=== PATIENT | male | born 1960 | race Caucasian/White ===

== ENCOUNTER → 2018-01-02 | Outpatient (CLI) | payer BC | END | disposition home or self-care (01) | LOC: RADMRIMAIN 06:28 | PROVIDERS: ATTEND Surgery | DX: K76.9 Liver disease, unspecified (principal) | CPT/HCPCS: 82565 ==

== ENCOUNTER → 2018-07-21 | Outpatient (CLI) | payer BC | LOC: LABWHC1 12:22 | PROVIDERS: ATTEND Orthopaedic Surgery | DX: Z01.812 Encounter for preprocedural laboratory examination (principal); M16.12 Unilateral primary osteoarthritis, left hip | CPT/HCPCS: 86850; 86900; 86901; 87070 ==

== ENCOUNTER 2018-07-31 12:18 | Inpatient (IN) | payer BC ==
[2018-07-27 17:27] VITALS: BMI 31.7
--- NOTE | 2018-07-30 17:45 | HP ---
HISTORY AND PHYSICAL Surgery is scheduled for 07/31/2018. Harvey Tran is a 57-year-old patient seen with progressive left hip pain. We discussed treatment options. He elected to proceed with left total hip arthroplasty. Consent regarding procedure was obtained. Clearance had been provided by Dr. Ladarius Yanes. PAST MEDICAL HISTORY: Hyperlipidemia, hypertension. PAST SURGICAL HISTORY: Right total hip arthroplasty, knee arthroscopy. DAILY MEDICATIONS: Atorvastatin, losartan. ALLERGIES: None reported. SOCIAL HISTORY: Patient denies current tobacco use. PHYSICAL EXAMINATION: Evaluation of the left hip, there is a limited range of motion with pain. Positive hip impingement sign. Straight leg raise negative. Distal neurovascular exam is intact. RADIOGRAPHS: Radiographs of the left hip reveal severe osteoarthritic changes. IMPRESSION: 1. Left hip osteoarthritis. 2. Hypertension. 3. Hyperlipidemia. PLAN: Left direct anterior left total hip arthroplasty. MMODL / IJN: [id number] /
[~2018-07-31 12:18] MED LIST: TRANEXAMIC ACID 1,000 MG in SODIUM CHLORIDE 0.9% 50 ML IVPB ONE; ceFAZolin IN SWFI 2 GM/20 ML SYRINGE IVP ONE
[2018-07-31] MEDS ORDERED: LACTATED RINGERS 1,000 ML IV ONE ×2 (14:15→16:42)
[2018-07-31] MEDS ORDERED: LIDOCAINE 1% 20 ML VIAL (10MG/ML) FOR IV START INTRADERMA ONE (14:15)
[2018-07-31] MEDS ORDERED: ROPIVACAINE 246.25 MG, EPINEPHrine 0.5 MG, KETOROLAC 30 MG, cloNIDine HCL/PF 80 MCG, WA... MISCELLANE ONE ×5 (14:24)
[2018-07-31] MEDS: ACETAMINOPHEN TAB 500 MG TAB PO ONE ×2 (14:44→18:10)
[2018-07-31] MEDS: MELOXICAM 7.5 MG TAB PO ONE ×2 (14:44→18:11)
[2018-07-31] MEDS ORDERED: ONDANSETRON 4 MG/2 ML VIAL IVP ONE (14:53)
[2018-07-31] MEDS ORDERED: DEXAMETHASONE SOD PHOSPHATE 10 MG/ML 1 ML VIAL IV ONE (14:53)
[2018-07-31] MEDS ORDERED: ePHEDrine SULFATE/0.9% NACL/PF 50 MG/5 ML SYRINGE IV ONE (14:57)
[2018-07-31] MEDS ORDERED: fentaNYL (PF) 50 MCG/ML 2 ML AMP ONE (14:57)
[2018-07-31] MEDS ORDERED: SODIUM CHLORIDE 0.9% 100 ML BAG ONE (14:57)
[2018-07-31] MEDS ORDERED: MIDAZOLAM 2 MG/2 ML VIAL ONE (14:57)
[2018-07-31] MEDS ORDERED: PHENYLEPHRINE-0.9% NACL SYG 1 MG/10 ML SYRINGE ONE (14:57)
[2018-07-31] MEDS ORDERED: TRANEXAMIC ACID 1,000 MG/10 ML VIAL ONE (14:57)
[2018-07-31] MEDS ORDERED: ceFAZolin 3,000 MG in SODIUM CHLORIDE 0.9% IRRIGATIO 3,000 ML IRRIGATION ONE (15:30)
[2018-07-31] MEDS ORDERED: HYDROcodone/APAP 10-325MG 1 EACH TAB PO PRN (16:47)
[2018-07-31] MEDS ORDERED: HYDROmorphone 0.5 MG/0.5 ML SYRINGE IVP PRN ×2 (16:47)
[2018-07-31] MEDS ORDERED: NALOXONE 0.4 MG/ML 1 ML VIAL IV PRN (16:47)
[2018-07-31] MEDS ORDERED: traMADol 50 MG TAB PO PRN (16:47)
[2018-07-31] MEDS ORDERED: ONDANSETRON 4 MG/2 ML VIAL IVP PRN (16:47)
--- NOTE | 2018-07-31 16:47 | P.OP ---
Date of Procedure: 07/31/18 Preoperative Diagnosis: Left hip osteoarthritis Postoperative Diagnosis: Left hip osteoarthritis Procedure(s) Performed: Direct anterior left total hip arthroplasty Implants: 1. Depuy Corail KA size 11 standard collar press-fit femoral stem 2. Depuy pinnacle 56 mm press-fit acetabular shell 3. Depuy pinnacle neutral polyethylene acetabular liner 36 mm ID 56 mm OD 4. Biolox delta ceramic femoral head 36 mm +5 Anesthesia: local, spinal Surgeon: Ryan Mann Ice Puller #1: Jhon Hinds Estimated Blood Loss (ml): 250 Pathology: other (Femoral head) Condition: stable Disposition: PACU Indications for Procedure: 57-year-old patient seen with symptomatic left hip osteoarthritis. After treatment options were discussed, he elected to proceed with total hip arthroplasty. Operative Findings: see description of procedure Description of Procedure: The patient was taken to the operative suite. Patient underwent a spinal anesthetic by the department of anesthesia. Patient was then transferred to the [address] table. Patient was given preoperative IV antibiotics and TXA. Both lower extremities were placed in standard leg spars. The hip was then prepped and draped in the normal sterile orthopedic fashion. A standard anterior incision was made beginning 3 cm lateral and 1 cm distal to the ASIS extending 10 cm. Dissection was then carried down through the subcutaneous soft tissues down to the fascia overlying the tensor fascia diandra. An incision was now made through the fascia. Careful dissection was taken down exposing the tensor fascia diandra muscle. A Cobra retractor was now placed along the medial femoral neck and a second one along the lateral femoral neck. The venous circumflex vessels were now identified, cauterized and clipped. We identified the anterior hip capsule. An incision was made through the hip capsule along the lateral border. I performed a partial anterior capsulectomy. Retractors were now placed around the femoral neck itself. A femoral neck cut was now made with a sagittal saw. It was completed with an osteotome at the lateral neck area. The femoral head was now removed without difficulty. The extremity was now rotated to 45 of external rotation. It was locked in position. Residual labrum was now debrided out. Serial reaming was performed of the acetabulum while rBennen CADENA assisted holding an anterior retractor for exposure. Once we reached the appropriate size and a trial was position and fit nicely. The appropriate size was now chosen opened and made available. It was introduced into the acetabulum without difficulty. The C-arm/fluoroscopy was now brought into the operative field. We made sure we had a true AP pelvic view. We now under direct C-arm/fluoroscopy introduced into the acetabular component with appropriate version and inclination. I held the cup in appropriate position well Brennen CADENA used a mallet to seat the acetabular component. I noted the component now to be well seated and stable. Acetabular cup introduce her was removed. The C-arm was pulled back. An appropriate liner was introduced and clicked into position. It was felt to be stable. At this point retractors were removed. The extremity was now placed into 120 external rotation with no traction. The leg was now dropped to the ground and adducted. Appropriate retractors were now positioned along the proximal femur. We also placed our femoral look into position. Additional capsular releasing was performed to gain access to the proximal femur. We now used a box osteotome. A canal finder was now utilized. Serial broaching was now performed with the assistance of Brennen CADENA tapping the broaches down with a mallet while held the broach in appropriate rotation and position. This was done until we reached the appropriate size with good overall rotational stability. Appropriate calcar planing was performed. A trial head/neck was placed into position. The hip was now reduced. The C-arm/fluoroscopy was brought back into the operative field. A spot film was obtained of the nonoperative hip. A spot film was obtained of the trial components. Overlays were performed, we noted good overall alignment and positioning for determining leg length. The C- arm/fluoroscopy was pulled back. Retractors were repositioned and the hip was dislocated. The leg was again taken down to the ground and adducted. Appropriate retractors were repositioned as well as the femoral hook. All trial components were removed. The femoral implant was opened along with the femoral head. The femoral implant was introduced on the appropriate handle into our pre-broached area. I held the component position well Brennen CADENA used a mallet to seat the femoral component. The femoral component was now noted to be well seated and stable.. The femoral head was introduced with good positioning and fixation noted. Retractors were now removed. The hip was now reduced. There appeared be good positioning of the hip confirmed on intraoperative fluoroscopy. Spot films were obtained to document this. A second gram of TXA was given. The deep and superficial soft tissues were infiltrated with local analgesic. Bipolar cautery had been utilized intermittently through the procedure for hemostasis. The wound was irrigated copiously with pulse lavage mechanical irrigation. The fascia was repaired with Vicryl suture. The subcutaneous soft tissues were repaired in layers with Vicryl suture. The skin was approximated with pernio/Dermabond. Sterile dressings were applied. Patient was then awakened, transferred to a bed and taken to recovery in stable condition. Brennen CADENA assisted with the complex procedure.
[2018-07-31] MEDS: HYDROmorphone 0.5 MG/0.5 ML SYRINGE IVP ONE ×2 (17:20→17:26)
[2018-07-31] MEDS: HYDROcodone/APAP 10-325MG 1 EACH TAB PO PRN (19:03)
[2018-07-31] MEDS: HYDROmorphone 1 MG/ML 1 ML SYRINGE IVP PRN ×2 (19:53→23:35)
[2018-07-31] MEDS ORDERED: SENNOSIDES-DOCUSATE SODIUM 1 EACH TAB PO SCH (21:00)
[2018-07-31] MEDS: ceFAZolin IN SWFI 2 GM/20 ML SYRINGE IVP SCH (22:05)
[2018-08-01] MEDS: HYDROmorphone 1 MG/ML 1 ML SYRINGE IVP PRN ×2 (02:55→07:18)
--- NOTE | 2018-08-01 07:02 | FL ---
EXAMINATION TYPE: FL guidance operating room, XR Hip Limited LT DATE OF EXAM: 07/31/2018 CLINICAL HISTORY: Left anterior hip replacement TECHNIQUE: Fluoroscopy. COMPARISON: None. FINDINGS: Fluoroscopic guidance was provided during procedure performed by Dr. Mann. A total o f 21 seconds of fluoroscopic time was utilized during the procedure and 1 spot images was acquired du ring left anterior hip replacement. IMPRESSION: As Above.
[2018-08-01] MEDS: ceFAZolin IN SWFI 2 GM/20 ML SYRINGE IVP SCH (07:18)
[2018-08-01 07:45] VITALS: BP 116/77; PULSE 86; RESP 16; TEMP 98.4
[2018-08-01] MEDS ORDERED: FAMOTIDINE 20 MG TAB PO SCH (09:00)
[2018-08-01] MEDS ORDERED: ENOXAPARIN 40 MG/0.4 ML SYRINGE SQ SCH (09:00)
[2018-08-01] MEDS ORDERED: MELOXICAM 7.5 MG TAB PO SCH (09:00)
[2018-08-01] MEDS: HYDROcodone/APAP 10-325MG 1 EACH TAB PO PRN (10:10)
--- NOTE | 2018-08-01 10:23 | P.CONS ---
History of Present Illness - Reason for Consult Consult date: 08/01/18 Medical management Requesting physician: Ryan Mann - Chief Complaint s/p left total hip - History of Present Illness 57-year-old male with a past medical history significant for hypertension, hyperlipidemia, and osteoarthritis who underwent elective left total hip arthroplasty on 07/31/2018. Dr. Yanes was consulted for medical management. The patient was seen postoperatively on the medical unit. He is resting comfortably in bed. Patient states his pain is tolerable at this time, but is requiring IV narcotics to manage his pain. He states he walked up to the nurses station this morning without assistance. He was instructed to have help while ambulating today for his safety. He denies SOB. Denies chest pain. Denies nausea or vomiting. Vital signs remain stable. REVIEW OF SYSTEMS: Those systems with pertinent positive or pertinent negative responses have been documented in the HPI PHYSICAL EXAM: GENERAL: This is a 57-year-old male in no apparent distress at the time of examination. Pleasant and cooperative. HEENT: Head is atraumatic, normocephalic. Pupils are equal, round, and reactive to light. Sclerae anicteric. Conjunctivae are clear. Mucus membranes of the mouth are moist. Neck is supple. RESPIRATORY: Clear to auscultation. No wheezes, rales, or rhonchi. No use of accessory muscles. Patient maintaining oxygen saturation greater than 92%. No chest wall tenderness is noted on palpation or with deep breathing. CARDIOVASCULAR: Regular rate and rhythm. S1 and S2 noted. No JVD noted. No S3 or S4 noted. GASTROINTESTINAL: No distention noted. Abdomen soft and round. Normal active bowel sounds auscultated x 4 quadrants. No pain or tenderness noted upon palpation. INTEGUMENTARY: Dressing to left hip CDI. No cyanosis. No jaundice. No rashes noted. No cellulitis noted. EXTREMITIES: 2+ peripheral pulses. No evidence of peripheral edema. No calf tenderness noted. Skin grafts to right arm. Limited range of motion of right arm due to traumatic injury when patient was 18. NEUROLOGIC: Cranial nerves II-XII intact. PSYCHIATRIC: Awake, alert, and oriented X 3. Appropriate affect. Intact judgement and insight. ASSESSMENT: Osteoarthritis, s/p left total hip arthroplasty Hypertension Hyperlipidemia History of traumatic injury to right upper extremity with reattachment of lower half of limb and skin grafting Daily alcohol use, however patient reports he has decreased the amount of alcohol he drinks significantly Remote history of nicotine dependence Obesity: BMI 31.7 PLAN: Continue postoperative care per orthopedics. Activity as tolerated. PT/OT. Pain control-Attempt to transition to oral pain medications today. Resume home medications as appropriate. Monitor vital signs and address as appropriate. Incentive spirometer 10 times hour while awake. DVT prophylaxis: Lovenox 40 mg subcu daily. GI prophylaxis: Pepcid 20 mg daily. Thank you for this consultation. We will continue to follow with the patient during their hospitalization. Nurse practitioner note has been reviewed by physician. Signing provider agrees with the documented findings, assessment, and plan of care. Past Medical History Past Medical History: Hyperlipidemia, Hypertension, Osteoarthritis (OA) History of Any Multi-Drug Resistant Organisms: None Reported Past Surgical History: Joint Replacement, Orthopedic Surgery Additional Past Surgical History / Comment(s): R Hip replaced; L knee scoped; arm surgery with skin grafts/ can't bend arm; colonoscopy Past Anesthesia/Blood Transfusion Reactions: No Reported Reaction Past Psychological History: No Psychological Hx Reported Smoking Status: Former smoker Past Alcohol Use History: Daily Additional Past Alcohol Use History / Comment(s): drinks over 14 beers a week; smoked from 20-30's socially; less than 1/2 ppd Past Drug Use History: None Reported - Past Family History Mother Family Medical History: No Reported History Medications and Allergies Home Medications Medication Instructions Recorded Confirmed Type Atorvastatin [Lipitor] 20 mg PO DAILY 07/27/18 07/31/18 History Ibuprofen [Motrin] 800 mg PO BID 07/27/18 07/31/18 History Losartan/Hydrochlorothiazide 1 each PO DAILY 07/28/18 07/31/18 History [Losartan-Hctz 100-12.5 mg Tab] Allergies Allergy/AdvReac Type Severity Reaction Status Date / Time No Known Allergies Allergy Verified 07/31/18 19:13 Physical Exam Vitals: Vital Signs Temp Pulse Pulse Pulse Resp BP BP 08/01/18 07:00 98.4 F 86 16 116/77 07/31/18 20:46 97.9 F 92 116/56 07/31/18 20:28 107 H 135/77 07/31/18 19:29 86 131/71 07/31/18 19:14 79 129/62 07/31/18 18:59 90 128/79 18 18:42 85 103/62 18 18:12 81 122/74 07/31/18 17:45 92 18 118/56 07/31/18 17:30 86 16 119/59 07/31/18 17:15 77 16 114/58 07/31/18 17:00 97.0 F L 84 16 120/62 07/31/18 14:10 97.5 F L 67 16 145/76 07/31/18 12:30 97.6 F 92 17 111/67 Pulse Ox 08/01/18 07:00 96 07/31/18 20:46 79 L 07/31/18 20:28 82 L 07/31/18 19:29 100 07/31/18 19:14 73 L 07/31/18 18:59 82 L 18 18:42 91 L 07/31/18 18:12 92 L 07/31/18 17:45 95 07/31/18 17:30 95 07/31/18 17:15 96 07/31/18 17:00 96 07/31/18 14:10 97 07/31/18 12:30 96 Intake and Output 07/31/18 08/01/18 08/01/18 22:59 06:59 14:59 Intake Total 1301 300 250 Output Total 250 350 Balance 1051 -50 250 Intake: IV 1301 Intake, IV Titration 300 Amount Lactated Ringers 1,000 ml 300 @ 0 mls/hr IV .[facility] Rx#:[id number] Oral 250 Output: Urine 350 Estimated Blood Loss 250 Other: Weight 97.522 kg
[2018-08-01 11:04] LABS: Basophils % (A) 0 %; Eosinophils % (A) 0 %; HCT 37.5 % (39.0-53.0); HGB 11.8 gm/dL (13.0-17.5); Lymphocytes # (A) 1.2 k/uL (1.0-4.8); Lymphocytes % (A) 13 %; MCH 29.4 pg (25.0-35.0); MCHC 31.5 g/dL (31.0-37.0); MCV 93.1 fL (80.0-100.0); Monocytes # (A) 0.6 k/uL (0-1.0); Monocytes % (A) 6 %; Neutrophils % (A) 79 %; Platelet Count 290 k/uL (150-450); RBC 4.03 m/uL (4.30-5.90); RDW 13.5 % (11.5-15.5); WBC 8.9 k/uL (3.8-10.6)
--- NOTE | 2018-08-01 12:14 | P.PN ---
Subjective Progress Note Date: 08/01/18 Principal diagnosis: Status post left total hip arthroplasty Patient is seen today resting in his hospital bed, he appears comfortable. Pain is currently controlled. He is ambulated with therapy. He denies any shortness of breath, chest pain, fever or chills. Objective - Vital Signs Vital signs: Vital Signs Temp 98.4 F 08/01/18 07:00 Pulse 86 08/01/18 07:00 Resp 16 08/01/18 07:00 BP 116/77 08/01/18 07:00 Pulse Ox 96 08/01/18 07:00 Intake & Output 07/31/18 08/01/18 08/01/18 18:59 06:59 18:59 Intake Total 1501 300 250 Output Total 250 350 Balance 1251 -50 250 Weight 97.522 kg Intake: IV 1501 Intake, IV Titration 300 Amount Lactated Ringers 1,000 ml 300 @ 0 mls/hr IV .[facility] Rx#:[id number] Oral 250 Output: Urine 350 Estimated Blood Loss 250 - Exam Left lower extremity: Incision is clean, dry, and intact. The exofin fusion tape is in good condition. There is minimal soft tissue swelling and ecchymosis surrounding the medial and lateral aspects of the incision. Calf is soft, no tenderness with palpation. Plantar flexion, dorsiflexion, EHL, FHL are intact. Sensory exam to light touch throughout the extremity is intact, dorsal pedis pulses 2+. - Labs CBC & Chem 7: 08/01/18 08:54 Labs: Abnormal Lab Results - Last 24 Hours (Table) 08/01/18 Range/Units 08:54 RBC 4.03 L (4.30-5.90) m/uL Hgb 11.8 L (13.0-17.5) gm/dL Hct 37.5 L (39.0-53.0) % Assessment and Plan Plan: Assessment: Postoperative day 1 status post left total hip arthroplasty Plan: Pain control, we'll discharge home on oral medication GI and DVT prophylaxis, aspirin 81 mg twice a day at discharge Daily dressing changes, wound care discussed Home physical therapy and nursing after discharge Medical recommendations Discharge planning: Plan for discharge home today Time with Patient: Less than 30
--- NOTE | 2018-08-01 12:20 | P.DS ---
Providers Date of admission: 07/31/18 13:20 Expected date of discharge: 08/01/18 Attending physician: Ryan Mann Consults: 07/31/18 16:47 Consult Physician Routine Consulting Provider: Ladarius Yanes Reason/Comments: Medical management Do you want consulting provider notified?: Yes Primary care physician: Ladarius Yanes [facility] Course: Date of admission: 07/31/2018 Date of discharge: 08/01/2018 Admission diagnosis: Status post left total hip arthroplasty Discharge diagnosis: Same Attending physician: Dr. Mann Surgical procedures: Left total hip arthroplasty Brief history: Patient is a 57-year-old male with a history of with progressive primary left hip osteoarthritis. At this point patient has failed conservative treatment measures and has opted to proceed with a elective left total hip arthroplasty. Hospital course: Details of patient's surgery can be found in operative report. Patient tolerated the procedure well and was subsequently transported to orthopedic floor. Patient's orthopeidc and medical care was provided daily. Patient had daily laboratory tests performed for evaluation of overall blood counts. Patient had daily physical therapy to include strengthening range of motion as well as education with walker ambulation. Patient was treated with Lovenox for their postoperative DVT prophylaxis during their inpatient stay. Patient was noted to have a relatively uneventful postoperative course. Patient reported satisfactory pain control with oral pain medications by postoperative day 0. Patient showed satisfactory progress with physical therapy. Patient moved steadily through the program and had no difficulty meeting the goals by postoperative day 1. Given patient's otherwise satisfactory course and having met physical therapy goals, plan is to discharge patient home on postoperative day 1. Discharge condition/disposition: Patient will be discharged home in stable condition. Discharge medications: Instructions are given on resumption of patient's normal daily medications per primary care recommendation, in addition patient will be prescribed [place] 10 mg/325 mg, aspirin 81 mg. Discharge instructions: 1. Wound care and infection precautions, keep incision dry and covered while showering, no lotions, creams, moisturizers. No soaking, tubs, pools, hottubs. Do not scrub over the incision. 2. Weight-bear as tolerated with walker / cane until follow-up. 3. Ice and elevate when necessary. Do not exceed 20 minutes per hour with ice pack. 4. Utilize compression sleeve until seen at first follow up appointment. 5. Visiting nursing care. 6. Home physical therapy. 7. Pain meds and anticoagulants per prescription. 8. Pain medication has potential to cause constipation. Increase oral fluid and fiber intake. Contact primary care provider if you have not had a bowel movement within 48 hours after discharge 9. No anti-inflammatory medication until discussed at first post operative visit, this including Motrin, Aleve, Mobic, Diclofenac. 10. Follow up in office at 2 weeks postop with Brennen Hinds PA-C 11. Follow up with your primary care doctor 7-10 days after discharge. 12. Contact [facility] with any questions, . Procedures: Left total hip arthroplasty Patient Condition at Discharge: Good Plan - Discharge Summary Discharge Rx Participant: Yes New Discharge Prescriptions: New Aspirin [Adult Low Dose Aspirin EC] 81 mg PO BID #60 tablet. Hydrocodone/Acetaminophen [[place] 10-325] 1 - 2 each PO Q6H PRN #56 tab PRN Reason: Pain No Action Atorvastatin [Lipitor] 20 mg PO DAILY Ibuprofen [Motrin] 800 mg PO BID Losartan/Hydrochlorothiazide [Losartan-Hctz 100-12.5 mg Tab] 1 each PO DAILY Discharge Medication List Atorvastatin [Lipitor] 20 mg PO DAILY 07/27/18 [History] Ibuprofen [Motrin] 800 mg PO BID 07/27/18 [History] Losartan/Hydrochlorothiazide [Losartan-Hctz 100-12.5 mg Tab] 1 each PO DAILY [History] Aspirin [Adult Low Dose Aspirin EC] 81 mg PO BID #60 tablet. 08/01/18 [Rx] Hydrocodone/Acetaminophen [[place] 10-325] 1 - 2 each PO Q6H PRN #56 tab 08/01/18 [Rx] Follow up Appointment(s)/Referral(s): [facility], [NON-STAFF] - Jhon Hinds PAC [PHYSICIAN IT SOFTWARE ENGINEER] - 2 Weeks Activity/Diet/Wound Care/Special Instructions: Orthopedic Discharge Instructions: 1. Wound care and infection precautions, keep incision dry and covered while showering, no lotions, creams, moisturizers. No soaking, pools, hot tubs. Do not scrub over incision. 2. Weight-bear as tolerated with walker / cane until follow-up. 3. Ice and elevate when necessary. Do not exceed 20 minutes per hour with ice pack. 4. Utilize compression sleeve until seen at first follow up appointment. 5. Pain meds and anticoagulants per prescription. 6. Pain medication has potential to cause constipation. Increase oral fluid and fiber intake. Contact primary care provider if you have not had a bowel movement within 48 hours after discharge. 7. No anti-inflammatory medication until discussed at first post operative visit, this including Motrin, Aleve, Mobic, Diclofenac. 8. Follow up in office at 2 weeks postop with Brennen Hinds PA-C 9. Follow up with your primary care doctor 7-10 days after discharge. 10. Contact [facility] with any questions, . Discharge Disposition: HOME WITH HOME HEALTH SERVICES
== END 2018-08-01 14:50 | disposition home health service (06) | DRG 470 ==
LOC: 2ORMAIN 13:20 → 4SSUR 17:34
PROVIDERS: ADMIT Orthopaedic Surgery; ATTEND Orthopaedic Surgery
PROC: 0SRB04A Replacement of Left Hip Joint with Ceramic on Polyethylene Synthetic Substitute, Uncemented, Open Approach (ICD-10-PCS; principal; 2018-07-31 14:55)
DX: M16.12 Unilateral primary osteoarthritis, left hip (principal); I10 Essential (primary) hypertension; E78.5 Hyperlipidemia, unspecified; E66.9 Obesity, unspecified; Z68.31 Body mass index [BMI] 31.0-31.9, adult; Z79.899 Other long term (current) drug therapy; Z87.828 Personal history of other (healed) physical injury and trauma; Z87.891 Personal history of nicotine dependence; Z96.641 Presence of right artificial hip joint
CPT/HCPCS: 73501; 85025; 86850; 86900; 86901; 88300

== ENCOUNTER 2018-12-25 20:52 | Inpatient (IN) | payer BC ==
[2018-12-25] MEDS ORDERED: SODIUM CHLORIDE 0.9% 1,000 ML IV STA (22:24)
[2018-12-25] MEDS ORDERED: ASPIRIN 81 MG PO STA (22:24)
--- NOTE | 2018-12-25 22:51 | XR ---
History: ITS.REASON XR Reason: Chest Pain Exam: XR CXR 2 VIEWS Comparison: None available FINDINGS: The lungs are clear. The cardiac and mediastinal contours are within limits. The visualized osseous structures appear within limits. IMPRESSION: No evidence of acute disease.
[2018-12-25 22:55] LABS: Basophils % (A) 1 %; Eosinophils # (A) 0.2 k/uL (0-0.7); Eosinophils % (A) 3 %; HCT 44.8 % (39.0-53.0); HGB 14.2 gm/dL (13.0-17.5); Lymphocytes # (A) 2.5 k/uL (1.0-4.8); Lymphocytes % (A) 43 %; MCH 28.6 pg (25.0-35.0); MCHC 31.8 g/dL (31.0-37.0); MCV 89.9 fL (80.0-100.0); Mean Platelet Volume 6.9; Monocytes # (A) 0.3 k/uL (0-1.0); Monocytes % (A) 5 %; Neutrophils # (A) 2.7 k/uL (1.3-7.7); Neutrophils % (A) 46 %; Platelet Count 258 k/uL (150-450); RBC 4.98 m/uL (4.30-5.90); RDW 14.2 % (11.5-15.5); WBC 5.9 k/uL (3.8-10.6)
--- NOTE | 2018-12-25 22:57 | ED ---
General Adult HPI - General Chief complaint: Dizziness Stated complaint: Light headed, not feeling right Time Seen by Provider: 12/25/18 21:15 Source: patient Mode of arrival: ambulatory Limitations: no limitations - History of Present Illness Initial comments: Harvey is a 58-year-old gentleman presents the emergency department today for evaluation of multiple complaints. Patient reports that yesterday while he was walking around a store he began to get very sweaty, he became diaphoretic lightheaded and had to sit down. He reports that people had a hand M paper towels because he was so diaphoretic. He reports that at that time he had some feeling of acid reflux-type pressure in his chest but it resolved. Patient reports he felt well for the remainder eating in the night. 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 States that approximately 8 months ago he began experiencing some epigastric discomfort that he thought was gastritis secondary to gluten. Patient states that he eliminated beer from his diet and has been drinking vodka regularly instead she feels is improving his symptoms. He also states that he followed up with general surgeon Dr. Spears had upper and lower endoscopy with no significant findings. Patient reports he's been feeling better for the past couple of weeks but today and yesterday is been having this pressure in his lower chest. - Related Data Home Medications Medication Instructions Recorded Confirmed Ibuprofen [Motrin] 800 mg PO DAILY 07/27/18 12/25/18 Losartan/Hydrochlorothiazide 1 tab PO DAILY 07/28/18 12/25/18 [Losartan-Hctz 100-12.5 mg Tab] Atorvastatin Calcium [Lipitor] 10 mg PO DAILY 12/25/18 12/25/18 Allergies Allergy/AdvReac Type Severity Reaction Status Date / Time No Known Allergies Allergy Verified 12/25/18 21:18 Review of Systems ROS Statement: Those systems with pertinent positive or pertinent negative responses have been documented in the HPI. ROS Other: All systems not noted in ROS Statement are negative. Past Medical History Past Medical History: Hyperlipidemia, Hypertension, Osteoarthritis (OA) History of Any Multi-Drug Resistant Organisms: None Reported Past Surgical History: Joint Replacement, Orthopedic Surgery Additional Past Surgical History / Comment(s): R Hip replaced; L knee scoped; arm surgery with skin grafts/ can't bend arm; colonoscopy Past Anesthesia/Blood Transfusion Reactions: No Reported Reaction Past Psychological History: No Psychological Hx Reported Smoking Status: Former smoker Past Alcohol Use History: Daily Past Drug Use History: None Reported - Past Family History Mother Family Medical History: No Reported History General Exam - General Exam Comments Initial Comments: Physical Exam GENERAL: Patient is well-developed and well-nourished obese male with flushed face consistent with chronic alcohol use Patient is nontoxic and well-hydrated and is in no distress. HENT: Normocephalic, Atraumatic. EYES: PERRL, EOMI PULMONARY: Unlabored respirations. No audible rales rhonchi or wheezing was noted. CARDIOVASCULAR: There is a regular rate and rhythm without any murmurs gallops or rubs. ABDOMEN: Obese Hepatomegaly Soft and nontender with normal bowel sounds. SKIN: Skin is clear with no lesions or rashes and otherwise unremarkable. : Deferred NEUROLOGIC: Patient is alert and oriented x3. Moving all extremities spontaneously MUSCULOSKELETAL: Normal extremities with adequate strength and full range of motion. No lower extremity swelling or edema. No calf tenderness. PSYCHIATRIC: Normal psychiatric evaluation. Limitations: no limitations Course Vital Signs 12/25/18 12/26/18 21:02 00:00 Temperature 97.8 F Pulse Rate 102 H 78 Respiratory 20 19 Rate Blood Pressure 142/89 132/66 O2 Sat by Pulse 95 97 Oximetry EKG Findings - EKG Comments: EKG Findings:: EKG was obtained at 2136, rate is 83 rhythm is sinus at normal axis there are normal intervals, DC 164, QRS 110, QTC is 453 there are no acute ST elevations or depressions there is no evidence of acute ischemia or infarction. Medical Decision Making - Medical Decision Making Patient was seen and evaluated history was obtained from the patient since 58-year-old obese gentleman with history of hypertension, hyperlipidemia and alcohol abuse who is presenting today with a complaint of episodes of epigastric and lower chest pressure with diaphoresis and shortness of breath. HEART score - 5, highly suspicious, age, risk factors (HTN, HLD, Obesity, EtOH abuse, Family History) EKG is nonischemic, chest x-ray was unremarkable Initial troponin is negative Patient care was discussed with patient's primary care physician Dr. Yanes who agrees with plan for observation for evaluation by cardiology for acute coronary syndrome. - Lab Data Result diagrams: 12/25/18 21:26 12/25/18 21:26 Lab Results 12/25/18 12/25/18 12/25/18 Range/Units 21:26 21:26 21:26 WBC 5.9 (3.8-10.6) k/uL RBC 4.98 (4.30-5.90) m/uL Hgb 14.2 (13.0-17.5) gm/dL Hct 44.8 (39.0-53.0) % MCV 89.9 (80.0-100.0) fL MCH 28.6 (25.0-35.0) pg MCHC 31.8 (31.0-37.0) g/dL RDW 14.2 (11.5-15.5) % Plt Count 258 (150-450) k/uL Neutrophils % 46 % Lymphocytes % 43 % Monocytes % 5 % Eosinophils % 3 % Basophils % 1 % Neutrophils # 2.7 (1.3-7.7) k/uL Lymphocytes # 2.5 (1.0-4.8) k/uL Monocytes # 0.3 (0-1.0) k/uL Eosinophils # 0.2 (0-0.7) k/uL Basophils # 0.0 (0-0.2) k/uL PT (9.0-12.0) sec INR (<1.2) APTT (22.0-30.0) sec Sodium 143 (137-145) mmol/L Potassium 4.2 (3.5-5.1) mmol/L Chloride 109 H (98-107) mmol/L Carbon Dioxide 24 (22-30) mmol/L Anion Gap 10 mmol/L BUN 12 (9-20) mg/dL Creatinine 0.69 (0.66-1.25) mg/dL Est GFR (CKD-EPI)AfAm >90 (>60 ml/min/1.73 sqM) Est GFR (CKD-EPI)NonAf >90 (>60 ml/min/1.73 sqM) Glucose 81 (74-99) mg/dL Calcium 9.5 (8.4-10.2) mg/dL Magnesium 2.1 (1.6-2.3) mg/dL Total Bilirubin 0.4 (0.2-1.3) mg/dL AST 26 (17-59) U/L ALT 29 (21-72) U/L Alkaline Phosphatase 59 (38-126) U/L Troponin I (0.000-0.034) ng/mL NT-Pro-B Natriuret Pep 82 pg/mL Total Protein 6.8 (6.3-8.2) g/dL Albumin 4.3 (3.5-5.0) g/dL Lipase 116 (23-300) U/L Serum Alcohol 125 mg/dL 12/25/18 12/25/18 Range/Units 21:26 21:26 WBC (3.8-10.6) k/uL RBC (4.30-5.90) m/uL Hgb (13.0-17.5) gm/dL Hct (39.0-53.0) % MCV (80.0-100.0) fL MCH (25.0-35.0) pg MCHC (31.0-37.0) g/dL RDW (11.5-15.5) % Plt Count (150-450) k/uL Neutrophils % % Lymphocytes % % Monocytes % % Eosinophils % % Basophils % % Neutrophils # (1.3-7.7) k/uL Lymphocytes # (1.0-4.8) k/uL Monocytes # (0-1.0) k/uL Eosinophils # (0-0.7) k/uL Basophils # (0-0.2) k/uL PT 10.0 (9.0-12.0) sec INR 0.9 (<1.2) APTT 25.3 (22.0-30.0) sec Sodium (137-145) mmol/L Potassium (3.5-5.1) mmol/L Chloride (98-107) mmol/L Carbon Dioxide (22-30) mmol/L Anion Gap mmol/L BUN (9-20) mg/dL Creatinine (0.66-1.25) mg/dL Est GFR (CKD-EPI)AfAm (>60 ml/min/1.73 sqM) Est GFR (CKD-EPI)NonAf (>60 ml/min/1.73 sqM) Glucose (74-99) mg/dL Calcium (8.4-10.2) mg/dL Magnesium (1.6-2.3) mg/dL Total Bilirubin (0.2-1.3) mg/dL AST (17-59) U/L ALT (21-72) U/L Alkaline Phosphatase (38-126) U/L Troponin I <0.012 (0.000-0.034) ng/mL NT-Pro-B Natriuret Pep pg/mL Total Protein (6.3-8.2) g/dL Albumin (3.5-5.0) g/dL Lipase (23-300) U/L Serum Alcohol mg/dL Disposition Clinical Impression: Chest pain Disposition: ADMITTED IP TO THIS HOSP Condition: Stable Referrals: Ladarius Yanes DO [Primary Care Provider] - 1-2 days
[2018-12-25 23:00] LABS: ALT 29 U/L (21-72); AST 26 U/L (17-59); Albumin 4.3 g/dL (3.5-5.0); Alkaline Phosphatase 59 U/L (38-126); Anion Gap 10 mmol/L; Blood Urea Nitrogen 12 mg/dL (9-20); Calcium 9.5 mg/dL (8.4-10.2); Carbon Dioxide 24 mmol/L (22-30); Chloride 109 mmol/L (98-107); Glucose 81 mg/dL (74-99); Lipase 116 U/L (23-300); Magnesium 2.1 mg/dL (1.6-2.3); Potassium 4.2 mmol/L (3.5-5.1); Sodium 143 mmol/L (137-145); Total Bilirubin 0.4 mg/dL (0.2-1.3); Total Protein 6.8 g/dL (6.3-8.2)
[2018-12-25 23:02] LABS: Alcohol 125 mg/dL
[2018-12-25 23:03] LABS: INR 0.9 (<1.2); Partial Thromboplastin Time 25.3 sec (22.0-30.0)
[2018-12-26] MEDS ORDERED: NITROGLYCERIN SL TABS 0.4 MG TAB SUBLINGUAL PRN ×3 (00:23→15:34)
--- NOTE | 2018-12-26 07:42 | P.CRDCN ---
History of Present Illness Consult date: 12/26/18 Requesting physician: Ladarius Yanes Consult reason: chest pain Chief complaint: Chest pain History of present illness: This is a pleasant 58-year-old gentleman with history of hypertension, hyperlipidemia, family history of premature coronary artery disease in his father who had bypass surgery at age 62, quit smoking 10 years ago, he does drink 2 or 3 alcoholic beverages on almost a daily basis. He does have a history of several orthopedic surgeries. He states that on Tuesday he was shopping abdomen are as, became extremely hot and diaphoretic, he sat down in a chair, someone helped him out to his car he drove home. After arriving home he stated that he did several activities including painting and working outside. The following day he again developed similar symptoms this time he also noticed a fullness sensation and burning in the center of his chest, he states that he belched a few times and the symptoms seemed to subside. He was then out working on his escalator and the symptoms again returned, he called Dr. Yanes office and was referred to come to the emergency room for further evaluation and treatment. Blood pressure 142/80 on arrival, heart rate 100, 95% on room air. Blood pressure this morning 122/70 with a heart rate in the 60s, 90% on room air. Chest x-ray did not reveal any evidence of acute disease. EKG shows a normal sinus rhythm with no acute changes noted. White blood cell count 5.9, hemoglobin 14.2, platelet count 258. Sodium 143, potassium 4.2, BUN 12 and creatinine 0.6. Troponins negative 2. At the time of my examination this morning, patient denies any symptoms, feels overall like his usual self. Past Medical History Past Medical History: GERD/Reflux, Hyperlipidemia, Hypertension, Osteoarthritis (OA) Additional Past Medical History / Comment(s): recent cellulitis right arm History of Any Multi-Drug Resistant Organisms: None Reported Past Surgical History: Joint Replacement, Orthopedic Surgery Additional Past Surgical History / Comment(s): R & L Hip replaced; L knee scoped; arm surgery with skin grafts/ can't bend arm; colonoscopy,EGD Past Anesthesia/Blood Transfusion Reactions: No Reported Reaction Past Psychological History: No Psychological Hx Reported Smoking Status: Former smoker Past Alcohol Use History: Daily Additional Past Alcohol Use History / Comment(s): drinks 2 glasses of vodka daily; smoked from 20-30's socially; less than 1/2 ppd Past Drug Use History: None Reported - Past Family History Mother Family Medical History: Coronary Artery Disease (CAD), Myocardial Infarction ([place]), Vascular Disorder Father Family Medical History: Cancer, Coronary Artery Disease (CAD) Additional Family Medical History / Comment(s): colon cancer Medications and Allergies Home Medications Medication Instructions Recorded Confirmed Type Ibuprofen [Motrin] 800 mg PO DAILY 07/27/18 12/25/18 History Losartan/Hydrochlorothiazide 1 tab PO DAILY 07/28/18 12/25/18 History [Losartan-Hctz 100-12.5 mg Tab] Atorvastatin Calcium [Lipitor] 10 mg PO DAILY 12/25/18 12/25/18 History Allergies Allergy/AdvReac Type Severity Reaction Status Date / Time No Known Allergies Allergy Verified 12/25/18 21:18 Physical Exam Vitals: Vital Signs Temp Pulse Pulse Resp BP BP Pulse Ox 12/26/18 06:05 97.9 F 62 16 123/70 98 12/26/18 02:10 77 17 12/26/18 01:50 98.0 F 77 17 135/93 95 12/26/18 00:00 78 19 132/66 97 12/25/18 21:02 97.8 F 102 H 20 142/89 95 Intake and Output 12/25/18 12/26/18 12/26/18 22:59 06:59 14:59 Output Total 240 Balance -240 Output: Urine 240 Other: Voiding Method Toilet # Voids 2 Weight 96.162 kg 101.4 kg PHYSICAL EXAMINATION: GENERAL: 58-year-old gentleman in no acute distress at the time of my examination HEENT: Head is atraumatic, normocephalic. Pupils equal, round. Sclera anicteric. Conjunctiva are clear. Mucous membranes of the mouth are moist. Neck is supple. There is no elevated jugular venous pressure. No carotid bruit is heard. HEART EXAMINATION: Heart S1, S2 normal. No murmur or gallop heard. CHEST EXAMINATION: Lungs are clear to auscultation and precussion. No chest wall tenderness is noted on palpation or with deep breathing. ABDOMEN: Soft, nontender. Bowel sounds are heard. No organomegaly noted. EXTREMITIES: 2+ peripheral pulses with no evidence of peripheral edema and no calf tenderness noted. NEUROLOGIC patient is awake, alert and oriented 3 . Results 12/25/18 21:26 12/25/18 21:26 Cardiac Enzymes 12/25/18 12/25/18 12/26/18 Range/Units 21:26 21:26 03:11 AST 26 (17-59) U/L Troponin I <0.012 <0.012 (0.000-0.034) ng/mL Coagulation 12/25/18 Range/Units 21:26 PT 10.0 (9.0-12.0) sec APTT 25.3 (22.0-30.0) sec CBC 12/25/18 Range/Units 21:26 WBC 5.9 (3.8-10.6) k/uL RBC 4.98 (4.30-5.90) m/uL Hgb 14.2 (13.0-17.5) gm/dL Hct 44.8 (39.0-53.0) % Plt Count 258 (150-450) k/uL Comprehensive Metabolic Panel 12/25/18 Range/Units 21:26 Sodium 143 (137-145) mmol/L Potassium 4.2 (3.5-5.1) mmol/L Chloride 109 H (98-107) mmol/L Carbon Dioxide 24 (22-30) mmol/L BUN 12 (9-20) mg/dL Creatinine 0.69 (0.66-1.25) mg/dL Glucose 81 (74-99) mg/dL Calcium 9.5 (8.4-10.2) mg/dL AST 26 (17-59) U/L ALT 29 (21-72) U/L Alkaline Phosphatase 59 (38-126) U/L Total Protein 6.8 (6.3-8.2) g/dL Albumin 4.3 (3.5-5.0) g/dL Current Medications Generic Name Dose Route Start Last Admin Trade Name Freq PRN Reason Stop Dose Admin Aspirin 325 mg 12/27/18 09:00 Aspirin PO DAILY PRICILA Nitroglycerin 0.4 mg 12/26/18 00:23 Nitrostat SUBLINGUAL Q5M PRN Chest Pain Intake and Output 12/25/18 12/26/18 12/26/18 22:59 06:59 14:59 Output Total 240 Balance -240 Output: Urine 240 Other: Voiding Method Toilet # Voids 2 Weight 96.162 kg 101.4 kg 12/25/18 21:26 12/25/18 21:26 EKG Interpretations (text) EKG shows a normal sinus rhythm with no acute changes. Assessment and Plan Plan: Assessment and plan #1 symptoms of sudden onset of diaphoresis with associated fullness in the chest with belching. EKG shows normal sinus rhythm with no acute changes noted. Troponins times to have been negative. #2 hypertension #3 hyperlipidemia #4 family history of premature coronary artery disease Plan We will obtain an echocardiogram with Doppler study. Resume the patient's stat in, continue aspirin. Patient has been advised to undergo cardiac catheterization, the risks and the benefits were explained to the patient in detail and he is willing to proceed. This will be performed this morning by Dr. Dick. Further recommendations to follow. DNP note has been reviewed, I agree with a documented findings and plan of care. Patient was seen and examined.
[2018-12-26] MEDS ORDERED: ATORVASTATIN 80 MG TAB PO STA (08:08)
[2018-12-26] MEDS ORDERED: ALPRAZolam 0.25 MG TAB PO PRN (08:08)
[2018-12-26] MEDS ORDERED: SODIUM CHLORIDE 0.9% 1,000 ML in EMPTY BAG 1 BAG IV ONE (08:08)
[2018-12-26] MEDS ORDERED: ALPRAZolam 0.5 MG TAB PO PRN (08:08)
[2018-12-26] MEDS ORDERED: ASPIRIN 325 MG TAB PO STA (08:08)
[2018-12-26] MEDS ORDERED: ATORVASTATIN 80 MG TAB PO SCH (09:00)
[2018-12-26 10:33] LABS: Glucose,Whole Blood 96 mg/dL (75-99)
--- NOTE | 2018-12-26 11:19 | ECHOF ---
Referral Reason:chest pain MEASUREMENTS -------- HEIGHT: 175.3 cm WEIGHT: 96.2 kg BP: 104/56 RVIDd: 3.0 cm (< 3.3) IVSd: 1.3 cm (0.6 - 1.1) LVIDd: 5.2 cm (3.9 - 5.3) LVPWd: 1.0 cm (0.6 - 1.1) IVSs: 1.7 cm LVIDs: 4.1 cm LVPWs: 1.5 cm LA Diam: 3.7 cm (2.7 - 3.8) LAESV Index (A-L): 36.66 ml/m Ao Diam: 3.7 cm (2.0 - 3.7) AV Cusp: 1.6 cm (1.5 - 2.6) LA Diam: 4.1 cm (2.7 - 3.8) MV EXCURSION: 14.447 mm (> 18.000) MV EF SLOPE: 72 mm/s (70 - 150) EPSS: 0.4 cm MV E Elias: 0.66 m/s MV DecT: 214 ms MV A Elias: 0.97 m/s MV E/A Ratio: 0.68 RAP: 5.00 mmHg RVSP: 17.71 mmHg FINDINGS -------- Sinus rhythm. This was a technically adequate study. The left ventricular size is normal. There is mild concentric left ventricular hypertrophy. Overa ll left ventricular systolic function is normal with, an EF between 55 - 60 %. The right ventricle is normal in size. The left atrial size is normal. Normal LA size by volume 22+/-6 ml/m2. The right atrial size is normal. 5.0mg OF Lumason UTLIZED: 2 OR MORE WALL SEGMENTS NOT VISUALIZED. There is mild aortic valve sclerosis. There is no evidence of aortic regurgitation. Mild mitral annular calcification present. Mild mitral regurgitation is present. Mild tricuspid regurgitation present. Right ventricular systolic pressure is normal at < 35 mmHg. There is no pulmonic regurgitation present. The aortic root size is normal. IVC Not well visulized. Echo free space represents a pericardial fat pad. CONCLUSIONS -------- 1. The left ventricular size is normal. 2. There is mild concentric left ventricular hypertrophy. 3. Overall left ventricular systolic function is normal with, an EF between 55 - 60 %. 4. The right ventricle is normal in size. 5. The left atrial size is normal. 6. Normal LA size by volume 22+/-6 ml/m2. 7. The right atrial size is normal. 8. 5.0mg OF Lumason UTLIZED: 2 OR MORE WALL SEGMENTS NOT VISUALIZED. 9. Interatrial Septum not well visulized. 10. There is mild aortic valve sclerosis. 11. Mild mitral annular calcification present. 12. Mild mitral regurgitation is present. 13. Mild tricuspid regurgitation present. 14. Right ventricular systolic pressure is normal at < 35 mmHg. 15. There is no pulmonic regurgitation present. 16. The aortic root size is normal. 17. IVC Not well visulized. 18. Echo free space represents a pericardial fat pad. CLEANING LABORER: Kimberly Root RDCS
[2018-12-26] MEDS ORDERED: IV FLUID CONTINUATION 950 ML IV ONE (14:35)
[2018-12-26] MEDS ORDERED: LIDOCAINE 1% INJ 10MG/ML (20 ML MDV) ONE (14:42)
[2018-12-26] MEDS ORDERED: fentaNYL (PF) 50 MCG/ML 2 ML AMP ONE (14:42)
[2018-12-26] MEDS ORDERED: fentaNYL (PF) 50 MCG/ML 2 ML AMP IV ONE (14:45)
[2018-12-26] MEDS ORDERED: LIDOCAINE 1% INJ 10MG/ML (20 ML MDV) SQ ONE (14:50)
[2018-12-26] MEDS ORDERED: MIDAZOLAM (PF) 2 MG/2 ML VIAL IV ONE (14:50)
[2018-12-26] MEDS ORDERED: CLOPIDOGREL 75 MG TAB ONE (15:03)
[2018-12-26] MEDS ORDERED: BIVALIRUDIN BOLUS 250 MG/50 ML IV ONE (15:03)
[2018-12-26] MEDS ORDERED: BIVALIRUDIN 250 MG in SODIUM CHLORIDE 0.9% 50 ML IV ONE (15:04)
[2018-12-26] MEDS ORDERED: CLOPIDOGREL 75 MG TAB PO ONE (15:05)
[2018-12-26] MEDS ORDERED: IOPAMIDOL-370 125ML BTL INJ ONE (15:11)
[2018-12-26] MEDS ORDERED: IOPAMIDOL-370 100ML BTL INJ ONE (15:14)
[2018-12-26] MEDS ORDERED: ATROPINE SULFATE 0.1 MG/ML 10ML SYRINGE IV PRN (15:34)
[2018-12-26] MEDS ORDERED: MAG HYDROX/AL HYDROX/SIMETH 30 ML CUP PO PRN (15:34)
[2018-12-26] MEDS ORDERED: ZOLPIDEM 5 MG TAB PO PRN (15:34)
[2018-12-26] MEDS ORDERED: RX INFO: IV CONTRAST WAS GIVEN 1 EACH MISC MISCELLANE PRN (15:34)
[2018-12-26] MEDS ORDERED: SODIUM CHLORIDE 0.9% 1,000 ML IV SCH (15:45)
[2018-12-26] MEDS: LOSARTAN 50 MG TAB PO SCH (15:50)
[2018-12-26] MEDS: HYDROCHLOROTHIAZIDE 12.5 MG CAP PO SCH (15:51)
--- NOTE | 2018-12-26 22:27 | CC ---
CARDIAC CATHETERIZATION REPORT ATTENDING DOCTOR: Dr. Yanes HISTORY: Mr. Tran is a 58-year-old male with known history of hypertension, hyperlipidemia, family history of coronary artery disease who presented with symptoms of chest discomfort and dyspnea and diaphoresis. In view of that, recommendation made regarding cardiac catheterization. The procedures as well as risks and complications were discussed with the patient who is in full understanding and agreement. PROCEDURE: Patient was brought to label machine operator in a fasting semi-sedated state after receiving fentanyl and Benadryl and achieving moderate conscious sedated state. Using Xylocaine anesthesia and Seldinger technique, a 6-Cypriot sheath was introduced in the right femoral artery. Selective right and left coronary angiography was performed using 6- Cypriot 4 bend right and left David catheter. Multiple views of the coronary artery including hemiaxial views obtained. Following that, angioplasty and stenting was performed. Following that, a 6-Cypriot tight pigtail was introduced into the left ventricle and a 30 degree JANE view of the left ventricle was obtained. Following that, the catheter and sheaths were removed. Hemostasis was obtained with deployment of an Angio-Seal. There was no immediate complication. Patient was returned to his room in stable condition. FINDINGS: LEFT MAIN: This is a large-sized vessel bifurcating into left circumflex, left anterior descending artery. Left main coronary artery has no evidence of high-grade stenosis. LEFT ANTERIOR DESCENDING ARTERY: This is a large-sized vessel reaching to the apex with a wraparound apex segment giving rise to a large diagonal branch proximally. Prior to the diagonal branch, there is a 10%-20% plaque. After the takeoff of the first septal writing center director there is a 70% lesion in the LAD. The rest of the vessel has no high-grade stenosis. LEFT CIRCUMFLEX: This is a nondominant vessel giving rise to 2 obtuse marginal branch. The second one is large in caliber. The left circumflex as well as branches have no evidence of obstructive coronary artery disease. RIGHT CORONARY ARTERY: This is a large dominant vessel, bifurcating distally into PDA and posterolateral segment and branches. The right coronary artery as well as branches have no evidence of obstructive coronary disease. LEFT VENTRICULOGRAM: Left ventriculogram was performed in 30 degree JANE view and revealed normal left ventricular size and systolic function. Ejection fraction 60%. HEMODYNAMICS: There was no gradient across the aortic valve. The left ventricle end-diastolic pressure was 20 mmHg. CONCLUSION: 1. Critical stenosis involving the mid left anterior descending coronary artery. 2. Normal left ventricular size and systolic function. RECOMMENDATIONS AND DISCUSSION: In view of findings and anatomy, I recommend proceeding with angioplasty and stenting of the LAD. The procedures as well as risks and complication were discussed with the patient who is in full understanding and agreement. MMLEE / RAMONN: [id number] /
--- NOTE | 2018-12-26 22:42 | PTCA ---
PERCUTANEOUSTRANS CORORONARY ANGIOGRAPHY Mr. Tran is a 58-year-old male with a known history of hypertension, hyperlipidemia, family history of premature coronary disease who presented with symptoms of chest discomfort, underwent cardiac catheterization, was found to have significant disease involving the mid LAD. In view of that, recommendation was made regarding angioplasty and stenting. The procedure as well as risks and complications were discussed with the patient who is in full understanding and agreement. PROCEDURE: A 6-Persian FR4 guiding catheter in the system. After cannulating the left main, a 0.014 balanced medium weight J-wire was advanced across the lesion and positioned in the distal LAD. Subsequently a 3.0 x 18 mm Xience Heather stent was deployed and was dilated at 16 atmospheres. After the last inflation, after appropriate wait, the balloon and the guidewire were withdrawn back in the guiding catheter. Images were obtained, repeated. Those images reveal stable successful stenting. At that point, the guiding catheter, the balloon and the guidewire were removed. Left ventriculogram was performed. Following that, catheter and sheath were removed. Hemostasis was obtained with deployment of an Angio-Seal. There was no immediate complication. Patient is returned to his room in stable condition. Of note, the patient had chest discomfort and EKG changes with the inflations that resolved at the end of the procedure. He received Angiomax per protocol as well as oral loading dose of clopidogrel. RESULTS: Successful stenting of the mid LAD with reduction of stenosis from 70% to 0%. RECOMMENDATION: Patient will be continued on aspirin, Plavix, beta blockers and statin. The importance of dual antiplatelet treatment were discussed with the patient who is in full understanding and agreement. Duration of procedure is 30 minutes. MMODL / IJN: [id number] /
--- NOTE | 2018-12-27 04:09 | LTR ---
DATE OF SERVICE: 12/26/[address] Yanes: I had the pleasure of performing cardiac catheterization and coronary angioplasty and stenting on Mr. Tran at [facility] on December 26 and a fully copy of procedure note will be forwarded to you. In brief, he was found to have a significant disease involving the mid LAD and underwent successful stenting of that vessel. I am hopeful that this procedure will stabilize his status. Thank you again for allowing me to participate in his care. Please fee free to call for any questions. Sincerely, MMRADHAL / IJN: [id number] /
[2018-12-27 05:04] VITALS: RESP 16
[2018-12-27 07:45] LABS: Anion Gap 5 mmol/L; Blood Urea Nitrogen 15 mg/dL (9-20); Calcium 9.1 mg/dL (8.4-10.2); Carbon Dioxide 25 mmol/L (22-30); Chloride 108 mmol/L (98-107); Cholesterol 156 mg/dL (<200); Glucose 98 mg/dL (74-99); HDL Cholesterol 42 mg/dL (40-60); LDL Cholesterol,Calculated 90 mg/dL (0-99); Potassium 4.5 mmol/L (3.5-5.1); Sodium 138 mmol/L (137-145); Triglycerides 119 mg/dL (<150)
[2018-12-27] MEDS: HYDROCHLOROTHIAZIDE 12.5 MG CAP PO SCH (08:23)
[2018-12-27] MEDS: LOSARTAN 50 MG TAB PO SCH (08:23)
[2018-12-27 08:44] VITALS: BP 143/80; PULSE 78; TEMP 97.8
[2018-12-27] MEDS ORDERED: ATORVASTATIN 80 MG TAB PO SCH (09:00)
[2018-12-27] MEDS ORDERED: ASPIRIN 325 MG TAB PO SCH (09:00)
[2018-12-27] MEDS ORDERED: ASPIRIN 81 MG PO SCH (09:00)
--- NOTE | 2018-12-27 09:14 | PN ---
PROGRESS NOTE Mr. Tran is a 58-year-old male who presented with symptoms of chest discomfort and dyspnea, underwent cardiac catheterization, was found to have critical stenosis involving the LAD, underwent stenting of that vessel. He is doing well this morning. He is denying any chest pain, his breathing has been stable. He denies any dizziness or palpitation. He continues to be on aspirin once a day, Lipitor 80 mg daily, Plavix 75 mg daily, losartan 100 mg daily, hydrochlorothiazide 12.5 mg daily. PHYSICAL EXAMINATION: Blood pressure 120/80 with a heart rate in the 60s. LUNGS: Clear. HEART: Regular rate and rhythm, S1, S2. No S3. No rub. ABDOMEN: Soft, nontender. EXTREMITIES: No edema. Right groin, no hematoma. LAB DATA: EKG with no acute changes. BUN and creatinine of 15 and 0.6. Cholesterol 156, LDL of 90. IMPRESSION: 1. Status post stenting of the left anterior descending artery. 2. Hypertension. 3. Hyperlipidemia. RECOMMENDATION: Patient should be able to be discharged home today and followed as an outpatient. MMODL / IJN: [id number] /
--- NOTE | 2018-12-27 10:00 | P.DS ---
Providers Date of admission: 12/26/18 00:23 Expected date of discharge: 12/27/18 Attending physician: Ladarius Yanes Consults: 12/26/18 00:23 Consult Physician Urgent Consulting Provider: Celestino Adorno Consult Reason/Comments: high risk chest pain Do you want consulting provider notified?: Yes, Notify in am 12/26/18 15:35 Consult Physician Routine Consulting Provider: Celestino Adorno Consult Reason/Comments: Post Interventional patient Do you want consulting provider notified?: Already Contacted Primary care physician: Ladarius Yanse [facility] Course: Final Diagnoses: -Chest Pain,S/P cardiac catherization, S/P stenting of LAD -HTN -Hyperlipidemia Hospital COurse: This is a 58-year-old gentleman admitted to the ER with symptoms of significant diaphoresis, accompanied by feelings of fullness and belching while walking around in [place], in a patient with history of hypertension, hyperlipidemia, family history of CAD, ex-smoker, daily alcohol consumption. EKG reported normal sinus rhythm and no acute changes noted, troponins negative 3. Evaluated by cardiology. Underwent cardiac catheterization , reporting critical stenosis of the mid LAD, followed by stenting of the LAD. Telemetry procedure well. Cleared by cardiology for discharge. Patient is being discharged home in stable condition with guarded prognosis. The impression and plan of care has been dictated as directed. : I performed a history and examination of this patient, discussed the same with the dictator. I agree with the dictator's note ,documented as a scribe. Any additional findings or plans will be noted. Time taken: 35 minutes Patient Condition at Discharge: Stable Plan - Discharge Summary Discharge Rx Participant: No New Discharge Prescriptions: New Aspirin 81 mg PO DAILY chew Atorvastatin [Lipitor] 80 mg PO DAILY #90 tab Nitroglycerin Sl Tabs [Nitrostat] 0.4 mg SUBLINGUAL Q5M PRN #25 tab PRN Reason: Chest Pain Clopidogrel [Plavix] 75 mg PO DAILY #90 tab Continue Ibuprofen [Motrin] 800 mg PO DAILY Losartan/Hydrochlorothiazide [Losartan-Hctz 100-12.5 mg Tab] 1 tab PO DAILY Discontinued Atorvastatin Calcium [Lipitor] 10 mg PO DAILY Discharge Medication List Ibuprofen [Motrin] 800 mg PO DAILY 07/27/18 [History] Losartan/Hydrochlorothiazide [Losartan-Hctz 100-12.5 mg Tab] 1 tab PO DAILY 07/28/18 [History] Aspirin 81 mg PO DAILY chew 12/27/18 [Rx] Atorvastatin [Lipitor] 80 mg PO DAILY #90 tab 12/27/18 [Rx] Clopidogrel [Plavix] 75 mg PO DAILY #90 tab 12/27/18 [Rx] Nitroglycerin Sl Tabs [Nitrostat] 0.4 mg SUBLINGUAL Q5M PRN #25 tab 12/27/18 [Rx] Follow up Appointment(s)/Referral(s): Tran Dick MD [STAFF PHYSICIAN] - 01/04/19 3:00 pm () Ladarius Yanes DO [Primary Care Provider] - 01/03/19 11:20 am (Tuesday) Ambulatory/Diagnostic Orders: Complete Blood Count w/diff [LAB.AMB] Time Frame: 3 Days, Location: None Selected Patient Instructions/Handouts: *Surgery [facility] - After Heart Catheterization - Perishable Fruit Inspector Instructions, Left Heart Catheterization (DC) Activity/Diet/Wound Care/Special Instructions: No Etoh
[2018-12-27 10:22] VITALS: BMI 32.7
[2018-12-27] MEDS ORDERED: CLOPIDOGREL 75 MG TAB PO SCH (12:00)
== END 2018-12-27 10:59 | disposition home or self-care (01) | DRG 247 ==
LOC: EC 20:52 → OBSVTOIN 12-26 00:23 → 3SCARD 12-26 00:23 → UNDODISOB 12-27 10:59
PROVIDERS: ADMIT Family Medicine; ATTEND Family Medicine
PROC: B2111ZZ Fluoroscopy of Multiple Coronary Arteries using Low Osmolar Contrast (ICD-10-PCS; principal; 2018-12-26 14:40)
PROC: 027034Z Dilation of Coronary Artery, One Artery with Drug-eluting Intraluminal Device, Percutaneous Approach (ICD-10-PCS; principal; 2018-12-26 14:40)
PROC: 4A023N7 Measurement of Cardiac Sampling and Pressure, Left Heart, Percutaneous Approach (ICD-10-PCS; 2018-12-26 14:40)
PROC: B2151ZZ Fluoroscopy of Left Heart using Low Osmolar Contrast (ICD-10-PCS; 2018-12-26 14:40)
DX: I25.10 Atherosclerotic heart disease of native coronary artery without angina pectoris (principal); E66.9 Obesity, unspecified; E78.5 Hyperlipidemia, unspecified; I10 Essential (primary) hypertension; K21.9 Gastro-esophageal reflux disease without esophagitis; F10.10 Alcohol abuse, uncomplicated; M19.90 Unspecified osteoarthritis, unspecified site; Z96.641 Presence of right artificial hip joint; Z79.02 Long term (current) use of antithrombotics/antiplatelets; Z79.899 Other long term (current) drug therapy; Z87.891 Personal history of nicotine dependence; Z68.32 Body mass index [BMI] 32.0-32.9, adult; Z82.49 Family history of ischemic heart disease and other diseases of the circulatory system; Z86.19 Personal history of other infectious and parasitic diseases; Z80.0 Family history of malignant neoplasm of digestive organs
CPT/HCPCS: 36415; 71046; 80048; 80053; 80061; 80320; 83690; 83735; 83880; 84484; 85025; 85610; 85730; 93005; 93306; 93458; 94760; 96360; 96361; 99285; C1874

== ENCOUNTER 2019-01-15 06:58 | Emergency (ER) | payer BC ==
[2019-01-15 07:12] VITALS: TEMP 96.9
[2019-01-15] MEDS ORDERED: diphenhydrAMINE 50 MG/ML 1 ML VIAL IVP STA (07:30)
[2019-01-15] MEDS ORDERED: IPRATROPIUM-ALBUTEROL 3 ML NEB INHALATION STA (07:30)
--- NOTE | 2019-01-15 07:48 | ED ---
Allergic Reaction HPI - General Chief complaint: Allergic Reaction Stated complaint: Swollen Throat, Poison [place] Time Seen by Provider: 01/15/19 07:17 Source: patient Mode of arrival: ambulatory Limitations: no limitations - History of Present Illness Initial Comments: Patient is a 58-year-old male complaining of possible ALLERGIC reaction to poison oak. States he is working outside for 5 days ago and developed a rash on his arms and legs. He went to urgent care 2 days ago and was given some brian- Medrol IM, and prescription for prednisone and Claritin. States the itching has improved some but then last night developed a heaviness on the chest and had a hard time sleeping. Of note, he had a heart stent placed 2 weeks ago. No complications since the procedure. Patient denies chest pain, nausea, vomiting, abdominal pain, [place]. - Related Data Home Medications Medication Instructions Recorded Confirmed Loratadine [Claritin] 10 mg PO DAILY 01/15/19 01/15/19 Losartan Potassium 100 mg PO DAILY 01/15/19 01/15/19 predniSONE 60 mg PO DAILY 01/15/19 01/15/19 Previous Rx's Medication Instructions Recorded Aspirin 81 mg PO DAILY chew 12/27/18 Atorvastatin [Lipitor] 80 mg PO DAILY #90 tab 12/27/18 Clopidogrel [Plavix] 75 mg PO DAILY #90 tab 12/27/18 Nitroglycerin Sl Tabs [Nitrostat] 0.4 mg SUBLINGUAL Q5M PRN #25 tab 12/27/18 Allergies Allergy/AdvReac Type Severity Reaction Status Date / Time No Known Allergies Allergy Verified 01/15/19 07:42 Review of Systems ROS Statement: Those systems with pertinent positive or pertinent negative responses have been documented in the HPI. ROS Other: All systems not noted in ROS Statement are negative. Past Medical History Past Medical History: GERD/Reflux, Hyperlipidemia, Hypertension, Osteoarthritis (OA) Additional Past Medical History / Comment(s): recent cellulitis right arm History of Any Multi-Drug Resistant Organisms: None Reported Past Surgical History: Joint Replacement, Orthopedic Surgery Additional Past Surgical History / Comment(s): R & L Hip replaced; L knee scoped; arm surgery with skin grafts/ can't bend arm; colonoscopy,EGD Past Anesthesia/Blood Transfusion Reactions: No Reported Reaction Past Psychological History: No Psychological Hx Reported Smoking Status: Former smoker Past Alcohol Use History: Daily Past Drug Use History: None Reported - Past Family History Mother Family Medical History: Coronary Artery Disease (CAD), Myocardial Infarction ([place]), Vascular Disorder Father Family Medical History: Cancer, Coronary Artery Disease (CAD) Additional Family Medical History / Comment(s): colon cancer General Exam - General Exam Comments Initial Comments: GENERAL: Well-appearing, well-nourished and in no acute distress. HEAD: Atraumatic, normocephalic. EYES: Pupils equal round and reactive to light, extraocular movements intact, sclera anicteric, conjunctiva are normal. ENT: TMs normal, nares patent, oropharynx clear without exudates. Moist mucous membranes. NECK: Normal range of motion, supple without lymphadenopathy or JVD. LUNGS: Breath sounds clear to auscultation bilaterally and equal. No wheezes rales or rhonchi. HEART: Regular rate and rhythm without murmurs, rubs or gallops. ABDOMEN: Soft, nontender, normoactive bowel sounds. No guarding, no rebound. No masses appreciated. : Deferred EXTREMITIES: Normal range of motion, no pitting or edema. No clubbing or cyanosis. NEUROLOGICAL: Cranial nerves II through XII grossly intact. Normal speech, normal gait. PSYCH: Normal mood, normal affect. SKIN: Warm, Dry, normal turgor, no rashes or lesions noted. Limitations: no limitations Skin exam: Present: warm, rash, erythema Expanded Type of lesion: Present: rash Distribution of rash: neck, chest, RUE, LUE, RLE, LLE Description of rash: Present: erythematous, macular, papular Course Vital Signs 01/15/19 01/15/19 01/15/19 07:09 07:40 07:51 Temperature 96.9 F L Pulse Rate 96 76 83 Respiratory 22 Rate Blood Pressure 147/81 O2 Sat by Pulse 91 L Oximetry 01/15/19 08:00 Temperature Pulse Rate 75 Respiratory 20 Rate Blood Pressure 131/90 O2 Sat by Pulse 98 Oximetry Medical Decision Making - Medical Decision Making Patient is a 58-year-old male complaining of ALLERGIC reaction to poison oak. He was taking prednisone and Claritin and his symptoms were improving. He started complaining of heaviness in his chest last night and was worried as he had a heart stent placed 2 weeks ago. CBC, CMP, troponin were all within normal limits. EKG showed no ST changes or evidence of PE. Patient's symptoms improved with Benadryl. Patient will be discharged home and continuing with steroids and Benadryl. - Lab Data Result diagrams: 01/15/19 08:11 01/15/19 08:11 Lab Results 01/15/19 01/15/19 01/15/19 Range/Units 08:11 08:11 08:11 WBC 7.0 (3.8-10.6) k/uL RBC 5.19 (4.30-5.90) m/uL Hgb 15.1 (13.0-17.5) gm/dL Hct 47.3 (39.0-53.0) % MCV 91.1 (80.0-100.0) fL MCH 29.0 (25.0-35.0) pg MCHC 31.9 (31.0-37.0) g/dL RDW 15.8 H (11.5-15.5) % Plt Count 126 L D (150-450) k/uL Neutrophils % 64 % Lymphocytes % 28 % Monocytes % 5 % Eosinophils % 2 % Basophils % 0 % Neutrophils # 4.5 (1.3-7.7) k/uL Lymphocytes # 1.9 (1.0-4.8) k/uL Monocytes # 0.3 (0-1.0) k/uL Eosinophils # 0.1 (0-0.7) k/uL Basophils # 0.0 (0-0.2) k/uL Sodium 141 (137-145) mmol/L Potassium 4.9 (3.5-5.1) mmol/L Chloride 109 H (98-107) mmol/L Carbon Dioxide 26 (22-30) mmol/L Anion Gap 6 mmol/L BUN 26 H (9-20) mg/dL Creatinine 0.70 (0.66-1.25) mg/dL Est GFR (CKD-EPI)AfAm >90 (>60 ml/min/1.73 sqM) Est GFR (CKD-EPI)NonAf >90 (>60 ml/min/1.73 sqM) Glucose 90 (74-99) mg/dL Calcium 9.2 (8.4-10.2) mg/dL Total Bilirubin 1.2 (0.2-1.3) mg/dL AST 35 (17-59) U/L ALT 33 (21-72) U/L Alkaline Phosphatase 33 L (38-126) U/L Troponin I <0.012 (0.000-0.034) ng/mL Total Protein 6.9 (6.3-8.2) g/dL Albumin 4.0 (3.5-5.0) g/dL - EKG Data EKG Comments: Normal sinus rhythm, ventricular rate 86, AZ interval 148, QTC 461. No ST segment changes, no evidence of PE. Disposition Clinical Impression: Allergic dermatitis due to poison oak Disposition: HOME SELF-CARE Condition: Stable Instructions (If sedation given, give patient instructions): Urticaria (ED), Poison Gaby (ED) Additional Instructions: Please return to the Emergency Department if symptoms worsen or any other concerns. Follow up with PCP in 1 to 3 days if symptoms are not improving. Is patient prescribed a controlled substance at d/c from ED?: No Referrals: Ladarius Yanes DO [Primary Care Provider] - 1-2 days
[2019-01-15] MEDS ORDERED: diphenhydrAMINE 50 MG/ML 1 ML VIAL IM STA (08:04)
[2019-01-15 08:35] LABS: Basophils % (A) 0 %; Eosinophils # (A) 0.1 k/uL (0-0.7); Eosinophils % (A) 2 %; HCT 47.3 % (39.0-53.0); HGB 15.1 gm/dL (13.0-17.5); Lymphocytes # (A) 1.9 k/uL (1.0-4.8); Lymphocytes % (A) 28 %; MCHC 31.9 g/dL (31.0-37.0); MCV 91.1 fL (80.0-100.0); Mean Platelet Volume 9.6; Monocytes # (A) 0.3 k/uL (0-1.0); Monocytes % (A) 5 %; Neutrophils # (A) 4.5 k/uL (1.3-7.7); Neutrophils % (A) 64 %; RBC 5.19 m/uL (4.30-5.90); RDW 15.8 % (11.5-15.5)
[2019-01-15 08:36] LABS: Platelet Count 126 k/uL (150-450)
[2019-01-15 08:47] LABS: Anion Gap 6 mmol/L; Blood Urea Nitrogen 26 mg/dL (9-20); Calcium 9.2 mg/dL (8.4-10.2); Carbon Dioxide 26 mmol/L (22-30); Chloride 109 mmol/L (98-107); Glucose 90 mg/dL (74-99); Sodium 141 mmol/L (137-145); Total Bilirubin 1.2 mg/dL (0.2-1.3)
[2019-01-15 09:00] LABS: Potassium 4.9 mmol/L (3.5-5.1); Total Protein 6.9 g/dL (6.3-8.2)
[2019-01-15 09:01] LABS: ALT 33 U/L (21-72); AST 35 U/L (17-59); Alkaline Phosphatase 33 U/L (38-126)
[2019-01-15 09:41] VITALS: BP 129/86; PULSE 73; RESP 18
== END 2019-01-15 09:44 | disposition home or self-care (01) ==
LOC: EC 06:58
DX: L23.7 Allergic contact dermatitis due to plants, except food (principal); R07.89 Other chest pain; J39.2 Other diseases of pharynx; I10 Essential (primary) hypertension; M19.90 Unspecified osteoarthritis, unspecified site; Z87.19 Personal history of other diseases of the digestive system; Z96.643 Presence of artificial hip joint, bilateral; Z87.891 Personal history of nicotine dependence; Z82.49 Family history of ischemic heart disease and other diseases of the circulatory system; Z95.5 Presence of coronary angioplasty implant and graft; Z79.52 Long term (current) use of systemic steroids; Z79.899 Other long term (current) drug therapy; Z53.8 Procedure and treatment not carried out for other reasons
CPT/HCPCS: 36415; 94640; 80053; 84484; 85025; 99283; 96372; J1200

== ENCOUNTER 2019-07-02 20:17 | Observation (INO) | payer BC ==
[2019-07-02] MEDS ORDERED: SODIUM CHLORIDE 0.9% 500 ML 500 ML IV STA (21:08)
[2019-07-02 21:25] LABS: Basophils % (A) 0 %; Eosinophils # (A) 0.1 k/uL (0-0.7); Eosinophils % (A) 1 %; HCT 39.5 % (39.0-53.0); HGB 13.2 gm/dL (13.0-17.5); Lymphocytes # (A) 2.2 k/uL (1.0-4.8); Lymphocytes % (A) 27 %; MCH 30.6 pg (25.0-35.0); MCHC 33.5 g/dL (31.0-37.0); MCV 91.2 fL (80.0-100.0); Mean Platelet Volume 5.9; Monocytes # (A) 0.5 k/uL (0-1.0); Monocytes % (A) 6 %; Neutrophils # (A) 5.3 k/uL (1.3-7.7); Neutrophils % (A) 65 %; Platelet Count 276 k/uL (150-450); RBC 4.32 m/uL (4.30-5.90); RDW 13.1 % (11.5-15.5); WBC 8.2 k/uL (3.8-10.6)
[2019-07-02 21:35] LABS: ALT 43 U/L (21-72); AST 29 U/L (17-59); African American GFR (CKD) >90 (>60 ml/min/1.73 sqM); Albumin 4.1 g/dL (3.5-5.0); Alkaline Phosphatase 60 U/L (38-126); Anion Gap 7 mmol/L; Blood Urea Nitrogen 23 mg/dL (9-20); Calcium 9.5 mg/dL (8.4-10.2); Carbon Dioxide 27 mmol/L (22-30); Chloride 108 mmol/L (98-107); Glucose 106 mg/dL (74-99); Magnesium 1.9 mg/dL (1.6-2.3); Non-African American GFR(CKD) >90 (>60 ml/min/1.73 sqM); Sodium 142 mmol/L (137-145); Total Bilirubin 0.5 mg/dL (0.2-1.3); Total Protein 6.7 g/dL (6.3-8.2)
--- NOTE | 2019-07-02 21:36 | ED ---
General Adult HPI - General Chief complaint: Dizziness Stated complaint: dizziness Time Seen by Provider: 07/02/19 21:00 Source: patient, RN notes reviewed, old records reviewed Mode of arrival: ambulatory Limitations: no limitations - History of Present Illness Initial comments: 58-year-old male presents for evaluation of episode of dizziness and we de scribes as smelling a "aroma". He states he had a similar symptoms approximately 6 months ago which resulted in diagnosis coronary artery disease and stent placement. He states he did not have chest pain at this time he did not have chest pain today. He denies any symptoms at the time my evaluation. Patient is known history of hypertension, remote tobacco use, hypercholesterolemia and CAD. He states he ate and drank normally today. He's had no associated nausea or vomiting. No diaphoresis. No pain complaints. No headache. No vision changes. No focal numbness or weakness. - Related Data Home Medications Medication Instructions Recorded Confirmed Losartan Potassium 100 mg PO DAILY 01/15/19 07/02/19 Ibuprofen [Motrin] 800 mg PO DAILY PRN 07/02/19 07/02/19 Previous Rx's Medication Instructions Recorded Aspirin 81 mg PO DAILY chew 12/27/18 Atorvastatin [Lipitor] 80 mg PO DAILY #90 tab 12/27/18 Clopidogrel [Plavix] 75 mg PO DAILY #90 tab 12/27/18 Nitroglycerin Sl Tabs [Nitrostat] 0.4 mg SUBLINGUAL Q5M PRN #25 tab 12/27/18 Allergies Allergy/AdvReac Type Severity Reaction Status Date / Time No Known Allergies Allergy Verified 07/02/19 21:55 Review of Systems ROS Statement: Those systems with pertinent positive or pertinent negative responses have been documented in the HPI. ROS Other: All systems not noted in ROS Statement are negative. Past Medical History Past Medical History: GERD/Reflux, Hyperlipidemia, Hypertension, Osteoarthritis (OA) Additional Past Medical History / Comment(s): recent cellulitis right arm History of Any Multi-Drug Resistant Organisms: None Reported Past Surgical History: Heart Catheterization With Stent, Joint Replacement, Orthopedic Surgery Additional Past Surgical History / Comment(s): R & L Hip replaced; L knee s coped; arm surgery with skin grafts/ can't bend arm; colonoscopy,EGD Past Anesthesia/Blood Transfusion Reactions: No Reported Reaction Past Psychological History: No Psychological Hx Reported Smoking Status: Former smoker Past Alcohol Use History: Daily Past Drug Use History: None Reported - Past Family History Mother Family Medical History: Coronary Artery Disease (CAD), Myocardial Infarction ([place]), Vascular Disorder Father Family Medical History: Cancer, Coronary Artery Disease (CAD) Additional Family Medical History / Comment(s): colon cancer General Exam Limitations: no limitations General appearance: alert, in no apparent distress Head exam: Present: atraumatic, normocephalic Eye exam: Present: normal appearance, PERRL ENT exam: Present: mucous membranes moist Neck exam: Present: normal inspection. Absent: tenderness, meningismus Respiratory exam: Present: normal lung sounds bilaterally. Absent: respiratory distress, wheezes Cardiovascular Exam: Present: regular rate, normal rhythm GI/Abdominal exam: Present: soft, distended. Absent: tenderness, guarding, rebound Extremities exam: Present: normal capillary refill, other (Remote traumatic injury to the right upper extremity, skin grafting.). Absent: pedal edema Neurological exam: Present: alert, oriented X3, CN II-XII intact, other (No ataxia). Absent: motor sensory deficit Psychiatric exam: Present: normal affect, normal mood Skin exam: Present: warm, dry, intact. Absent: cyanosis, diaphoretic Course Vital Signs 07/02/19 20:23 Temperature 97.7 F Pulse Rate 100 Respiratory 20 Rate Blood Pressure 169/89 O2 Sat by Pulse 95 Oximetry EKG Findings - EKG Comments: EKG Findings:: EKG: Normal sinus rhythm, incomplete right bundle branch block no ST segment elevation, T waves are upright, rate of 92, [place] interval 158, QRS duration 112, QTC 460 Medical Decision Making - Medical Decision Making 58-year-old male presenting with an episode of lightheadedness, and a "[place]". Symptoms today nearly identical to previous episodes brain 2019 that resulted in diagnosis of coronary artery disease and stent placement. No jessica chest pain. No vomiting or diaphoresis. Patient is otherwise well-appearing with stable vitals. EKG from January 2019 compared with EKG from today, there is the development of right bundle-branch block, no ST segment elevation on today's EKG. Workup in the emergency department reveals chest x-ray which is negative for acute cardiac pulmonary disease, head CT negative for intracranial hemorrhage or mass effect, normal CBC, normal active lites. Minimal troponin elevation 0.031. Given this history for this patient and will admit to the hospital for serial cardiac enzymes, cardiology consultation. Case discussed with patient's primary care physician Dr. Yanes, he will accept admission. - Lab Data Result diagrams: 07/02/19 20:50 07/02/19 20:50 Lab Results 07/02/19 07/02/19 07/02/19 Range/Units 20:50 20:50 20:50 WBC 8.2 (3.8-10.6) k/uL RBC 4.32 (4.30-5.90) m/uL Hgb 13.2 (13.0-17.5) gm/dL Hct 39.5 (39.0-53.0) % MCV 91.2 (80.0-100.0) fL MCH 30.6 (25.0-35.0) pg MCHC 33.5 (31.0-37.0) g/dL RDW 13.1 (11.5-15.5) % Plt Count 276 (150-450) k/uL Neutrophils % 65 % Lymphocytes % 27 % Monocytes % 6 % Eosinophils % 1 % Basophils % 0 % Neutrophils # 5.3 (1.3-7.7) k/uL Lymphocytes # 2.2 (1.0-4.8) k/uL Monocytes # 0.5 (0-1.0) k/uL Eosinophils # 0.1 (0-0.7) k/uL Basophils # 0.0 (0-0.2) k/uL Sodium 142 (137-145) mmol/L Potassium 4.0 (3.5-5.1) mmol/L Chloride 108 H (98-107) mmol/L Carbon Dioxide 27 (22-30) mmol/L Anion Gap 7 mmol/L BUN 23 H (9-20) mg/dL Creatinine 0.75 (0.66-1.25) mg/dL Est GFR (CKD-EPI)AfAm >90 (>60 ml/min/1.73 sqM) Est GFR (CKD-EPI)NonAf >90 (>60 ml/min/1.73 sqM) Glucose 106 H (74-99) mg/dL Calcium 9.5 (8.4-10.2) mg/dL Magnesium 1.9 (1.6-2.3) mg/dL Total Bilirubin 0.5 (0.2-1.3) mg/dL AST 29 (17-59) U/L ALT 43 (21-72) U/L Alkaline Phosphatase 60 (38-126) U/L Troponin I 0.031 (0.000-0.034) ng/mL Total Protein 6.7 (6.3-8.2) g/dL Albumin 4.1 (3.5-5.0) g/dL Disposition Clinical Impression: Chest pain Disposition: ADMITTED IP TO THIS [facility] Condition: Stable Is patient prescribed a controlled substance at d/c from ED?: No Referrals: Ladarius Yanes DO [Primary Care Provider] - 1-2 days Decision to Admit Reason: Admit from EC Decision Date: 07/02/19 Decision Time: 22:44
--- NOTE | 2019-07-02 21:53 | CT ---
EXAMINATION TYPE: CT brain wo con DATE OF EXAM: 07/02/2019 COMPARISON: None HISTORY: Dizziness, hypertension. CT DLP: 1098.[address] of the brain was performed. The ventricles, basal cisterns and sulci overlying the cerebral convexities demonstrate a normal appe arance. There is no evidence for intracranial hemorrhage or sulcal effacement. No mass effects are seen. Osseous calvarium is intact. If symptoms persist consider MRI as clinically warranted. IMPRESSION: 1. No acute intracranial process is seen at this time.
--- NOTE | 2019-07-02 21:59 | XR ---
EXAMINATION TYPE: XR chest 2V DATE OF EXAM: 07/02/2019 COMPARISON: 12/25/2018 HISTORY: Chest pain TECHNIQUE: Frontal and lateral views of the chest are obtained. FINDINGS: There is no focal air space opacity. No evidence for pneumothorax. No pleural effusion. The cardiac silhouette size is within normal limits. The osseous structures are grossly intact. IMPRESSION: 1. No acute cardiopulmonary process.
[2019-07-02] MEDS ORDERED: ASPIRIN 325 MG TAB PO STA (22:17)
[2019-07-02] MEDS ORDERED: HEPARIN SODIUM,PORCINE 5,000 UNIT/ML 1 ML VIAL IV PRN (22:25)
[2019-07-02] MEDS ORDERED: HEPARIN SODIUM,PORCINE 5,000 UNIT/ML 1 ML VIAL IV ONE (22:25)
[2019-07-02] MEDS ORDERED: HEPARIN SOD,PORK IN 0.45% NACL 25,000 UNIT in 0.45% NACL 1 250ML.BAG IV SCH (22:30)
[2019-07-02] MEDS ORDERED: ACETAMINOPHEN TAB 325 MG TAB PO PRN (22:39)
[2019-07-02] MEDS ORDERED: ONDANSETRON 4 MG/2 ML VIAL IVP PRN (22:39)
[2019-07-02] MEDS ORDERED: MORPHINE SULFATE 4 MG/ML SYRINGE IV PRN (22:39)
[2019-07-02] MEDS ORDERED: NALOXONE 0.4 MG/ML 1 ML VIAL IV PRN (22:39)
[2019-07-02] MEDS ORDERED: NITROGLYCERIN SL TABS 0.4 MG TAB SUBLINGUAL PRN (22:41)
[2019-07-03 00:03] VITALS: RESP 18
[2019-07-03 04:24] LABS: Basophils % (A) 1 %; Eosinophils # (A) 0.2 k/uL (0-0.7); Eosinophils % (A) 2 %; HCT 38.8 % (39.0-53.0); HGB 12.5 gm/dL (13.0-17.5); Lymphocytes # (A) 2.3 k/uL (1.0-4.8); Lymphocytes % (A) 37 %; MCH 29.8 pg (25.0-35.0); MCHC 32.2 g/dL (31.0-37.0); MCV 92.5 fL (80.0-100.0); Monocytes # (A) 0.5 k/uL (0-1.0); Monocytes % (A) 7 %; Neutrophils # (A) 3.3 k/uL (1.3-7.7); Neutrophils % (A) 51 %; Platelet Count 304 k/uL (150-450); RDW 13.1 % (11.5-15.5); WBC 6.4 k/uL (3.8-10.6)
[2019-07-03] MEDS ORDERED: CLOPIDOGREL 75 MG TAB PO SCH (09:00)
[2019-07-03] MEDS ORDERED: LOSARTAN 50 MG TAB PO SCH ×2 (09:00→11:45)
[2019-07-03] MEDS ORDERED: ATORVASTATIN 80 MG TAB PO SCH (09:00)
[2019-07-03] MEDS ORDERED: ASPIRIN 81 MG PO SCH (09:00)
[2019-07-03] MEDS ORDERED: DOBUTamine DRIP for NUC MED 500 MG in DEXTROSE/WATER 1 250ML.BAG IV ONE (09:20)
[2019-07-03] MEDS ORDERED: ATROPINE SULFATE 0.1 MG/ML 10ML SYRINGE ONE (11:09)
[2019-07-03] MEDS ORDERED: METOPROLOL TARTRATE 5 MG/5 ML VIAL IVP ONE (11:09)
[2019-07-03 11:32] VITALS: BP 123/80; PULSE 84; TEMP 97.6
--- NOTE | 2019-07-03 11:47 | P.CRDCN ---
History of Present Illness History of present illness: HISTORY OF PRESENTING ILLNESS This is a pleasant 58-year-old male past medical history significant for her nares artery disease status post PCI, hypertension, dyslipidemia, gastroesophageal reflux disease, former nicotine dependence and daily alcohol intake. He presented with dizziness and odd smell. He follows in the office with Dr. Dick. We have been asked to see him in consultation for concern for ACS. He is seen and examined sitting up in bed in no acute distress. He states he had a particularly active day yesterday with work and walking out [place]. He felt normal all day. After returning home in the evening he sat down in the living room and felt overall unwell. He felt like he was floating and the couch was moving. He got up and walked in the kitchen and started noticing an odd smell like rubber burning. There was not anything cooking or burning in his home. He states in December of last year when he was found to have CAD and needed a stent this was his main symptom. He denies ever having had chest pain, shortness of breath, palpitations or diaphoresis. DIAGNOSTICS EKG reveals sinus mechanism, heart rate 92, no acute ST or T-wave abnormalities. Chest xray negative for an acute cardiopulmonary process. CT brain negative for an acute intracranial process. Laboratory reviewed, WBC 6.4, hgb 12.5, plt 304, sodium 142, potassium 4.0, creatinine 0.75, magnesium 1.9, cardiac enzymes negative x2. Current cardiac medications include plavix 75 mg dialy, aspirin 81 mg daily, atorvastatin 80 mg daily and losartan 100 mg daily. Most recent echo obtain 12/2018 revealed preserved LV systolic function with EF 55-60%. Cardiac catheterization 12/2018 revealed a critical lesion of the mid LAD that was successfully revascularized. There was also a 10/20% plaque noted prior to the diagonal branch. RCA, circumflec and LM patent and free of disease. REVIEW OF SYSTEMS At the time of my exam: CONSTITUTIONAL: Denies fever or chills. CARDIOVASCULAR: Denies chest pain, shortness of breath, orthopnea, PND or palpitations. RESPIRATORY: Denies cough. GASTROINTESTINAL: Denies abdominal pain, diarrhea, constipation, nausea or vomiting. MUSCULOSKELETAL: Denies myalgias. NEUROLOGIC: Denies numbness, tingling or weakness. ENDOCRINE: Denies fatigue, weight change, polydipsia or polyurina. GENITOURINARY: Denies burning, hematuria or urgency with micturation. HEMATOLOGIC: Denies history of anemia or bleeding. PHYSICAL EXAMINATION Blood pressure 123/80 heart rate 84 afebrile and maintaining oxygen saturaiton on room air. CONSTITUTIONAL: No apparent distress. HEENT: Head is normocephalic. Pupils are equal, round. Sclerae anicteric. Mucous membranes of the mouth are moist. No JVD. No carotid bruit. CHEST EXAMINATION: Lungs are clear to auscultation. No chest wall tenderness is noted on palpation or with deep breathing. HEART EXAMINATION: Regular rate and rhythm. S1, S2 heard. No murmurs, gallops or rub. ABDOMEN: Soft, nontender. Positive bowel sounds. EXTREMITIES: 2+ peripheral pulses, no lower extremity edema and no calf tender ness. Right upper extremity with full thickness muscle loss due to crush injury. NEUROLOGIC EXAMINATION: Patient is awake, alert and oriented x3. ASSESSMENT Dizziness and aura History of coronary artery disease s/p PCI Hypertension Dyslipdemia Daily alcohol intake PLAN An acute coronary event has been ruled out. Obtain 2D echocardiogram and doppler study to assess cardiac structure and function. Perform dobutamine stress echocardiogram to assess for stress induced ischemia. Initiate on small dose of lopressor 12.5 mg BID and decrease losartan to 50 mg daily. Recommend complete alcohol cessation. Thank you kindly for this consultation. Nurse Practitioner note has been reviewed, I agree with a documented findings and plan of care. Patient was seen and examined. Past Medical History Past Medical History: GERD/Reflux, Hyperlipidemia, Hypertension, Osteoarthritis (OA) Additional Past Medical History / Comment(s): recent cellulitis right arm History of Any Multi-Drug Resistant Organisms: None Reported Past Surgical History: Heart Catheterization With Stent, Joint Replacement, Orthopedic Surgery Additional Past Surgical History / Comment(s): R & L Hip replaced; L knee scoped; arm surgery with skin grafts/ can't bend arm; colonoscopy,EGD Past Anesthesia/Blood Transfusion Reactions: No Reported Reaction Date of Last Stent Placement:: 12/2018 Past Psychological History: No Psychological Hx Reported Smoking Status: Former smoker Past Alcohol Use History: Daily Additional Past Alcohol Use History / Comment(s): drinks 2 glasses of vodka daily; smoked from 20-30's socially; less than 1/2 ppd Past Drug Use History: None Reported - Past Family History Mother Family Medical History: Coronary Artery Disease (CAD), Myocardial Infarction ([place]), Vascular Disorder Father Family Medical History: Cancer, Coronary Artery Disease (CAD) Additional Family Medical History / Comment(s): colon cancer Medications and Allergies Home Medications Medication Instructions Recorded Confirmed Type Aspirin 81 mg PO DAILY chew 12/27/18 07/02/19 Rx Atorvastatin [Lipitor] 80 mg PO DAILY #90 tab 12/27/18 07/02/19 Rx Clopidogrel [Plavix] 75 mg PO DAILY #90 tab 12/27/18 07/02/19 Rx Nitroglycerin Sl Tabs [Nitrostat] 0.4 mg SUBLINGUAL Q5M PRN #25 tab 12/27/18 07/02/19 Rx Losartan Potassium 100 mg PO DAILY 01/15/19 07/02/19 History Ibuprofen [Motrin] 800 mg PO DAILY PRN 07/02/19 07/02/19 History Allergies Allergy/AdvReac Type Severity Reaction Status Date / Time No Known Allergies Allergy Verified 07/02/19 21:55 Physical Exam Vitals: Vital Signs Temp Pulse Pulse Resp BP BP Pulse Ox 07/03/19 10:16 90/65 07/03/19 08:00 70 18 07/03/19 07:10 97.4 F L 70 18 129/79 99 07/03/19 04:00 97.5 F L 62 18 128/80 94 L 07/03/19 00:02 73 18 113/67 99 07/03/19 00:00 18 07/02/19 22:49 18 07/02/19 22:30 80 20 136/90 99 07/02/19 22:00 81 20 129/81 100 07/02/19 21:30 86 18 135/79 99 07/02/19 20:23 97.7 F 100 20 169/89 95 Intake and Output 07/02/19 07/03/19 07/03/19 22:59 06:59 14:59 Intake Total 537.1 Balance 537.1 Intake: Intake, IV Titration 57.1 Amount Heparin Sod,Pork in 0.45% 57.1 NaCl 25,000 unit In 0.45 % NaCl 1 250ml.bag @ 9 UNITS/KG/HR 9.185 mls/hr IV .Q24H [facility] Rx#: [id number] Oral 480 Other: Voiding Method Toilet Toilet # Voids 3 Weight 102.058 kg 102.058 kg Results 07/03/19 03:55 07/02/19 20:50 Cardiac Enzymes 07/02/19 07/02/19 07/03/19 Range/Units 20:50 20:50 03:59 AST 29 (17-59) U/L Troponin I 0.031 0.024 (0.000-0.034) ng/mL Coagulation 07/03/19 Range/Units 03:59 APTT 25.8 (22.0-30.0) sec CBC 07/02/19 07/03/19 Range/Units 20:50 03:55 WBC 8.2 6.4 (3.8-10.6) k/uL RBC 4.32 4.20 L (4.30-5.90) m/uL Hgb 13.2 12.5 L (13.0-17.5) gm/dL Hct 39.5 38.8 L (39.0-53.0) % Plt Count 276 304 (150-450) k/uL Comprehensive Metabolic Panel 07/02/19 Range/Units 20:50 Sodium 142 (137-145) mmol/L Potassium 4.0 (3.5-5.1) mmol/L Chloride 108 H (98-107) mmol/L Carbon Dioxide 27 (22-30) mmol/L BUN 23 H (9-20) mg/dL Creatinine 0.75 (0.66-1.25) mg/dL Glucose 106 H (74-99) mg/dL Calcium 9.5 (8.4-10.2) mg/dL AST 29 (17-59) U/L ALT 43 (21-72) U/L Alkaline Phosphatase 60 (38-126) U/L Total Protein 6.7 (6.3-8.2) g/dL Albumin 4.1 (3.5-5.0) g/dL Current Medications Generic Name Dose Route Start Last Admin Trade Name Freq PRN Reason Stop Dose Admin Acetaminophen 650 mg 07/02/19 22:39 Tylenol Tab PO Q6HR PRN Mild Pain or Fever > 100.5 Aspirin 81 mg 07/03/19 09:00 Aspirin PO DAILY [facility] Atorvastatin Calcium 80 mg 07/03/19 09:00 Lipitor PO DAILY [facility] Clopidogrel Bisulfate 75 mg 07/03/19 09:00 Plavix PO DAILY [facility] Heparin Sodium (Porcine) 0 unit 07/02/19 22:25 Heparin IV PER PROTOCOL PRN Low PTT Protocol Dobutamine HCl/Dextrose 500 mg 250 mls @ 30.617 mls/hr 07/03/19 09:20 / IV Solution IV 07/03/19 17:29 .Q8H10M ONE Protocol 10 MCG/KG/MIN Losartan Potassium 100 mg 07/03/19 09:00 Cozaar PO DAILY [facility] Metoprolol Tartrate 12.5 mg 07/03/19 12:00 Lopressor PO BID [facility] Morphine Sulfate 4 mg 07/02/19 22:39 Morphine Sulfate (Inj) IV Q4HR PRN Severe Pain Naloxone HCl 0.2 mg 07/02/19 22:39 Narcan IV Q2M PRN Opioid Reversal Nitroglycerin 0.4 mg 07/02/19 22:41 Nitrostat SUBLINGUAL Q5M PRN Chest Pain Ondansetron HCl 4 mg 07/02/19 22:39 Zofran IVP Q8HR PRN Nausea And Vomiting Intake and Output 07/02/19 07/03/19 07/03/19 22:59 06:59 14:59 Intake Total 537.1 Balance 537.1 Intake: Intake, IV Titration 57.1 Amount Heparin Sod,Pork in 0.45% 57.1 NaCl 25,000 unit In 0.45 % NaCl 1 250ml.bag @ 9 UNITS/KG/HR 9.185 mls/hr IV .Q24H [facility] Rx#: [id number] Oral 480 Other: Voiding Method Toilet Toilet # Voids 3 Weight 102.058 kg 102.058 kg Patient Weight 07/04/19 06:59 Weight 102.058 kg 07/03/19 03:55 07/02/19 20:50
[2019-07-03] MEDS ORDERED: METOPROLOL TARTRATE 12.5 MG TAB PO SCH (12:00)
[2019-07-03 12:10] LABS: Cholesterol 143 mg/dL (<200); HDL Cholesterol 57 mg/dL (40-60); LDL Cholesterol,Calculated 30 mg/dL (0-99); Triglycerides 278 mg/dL (<150)
--- NOTE | 2019-07-03 12:54 | ECHOF ---
Referral Reason:cp MEASUREMENTS -------- HEIGHT: 175.3 cm WEIGHT: 102.1 kg BP: 129/79 RVIDd: 3.2 cm (< 3.3) IVSd: 1.4 cm (0.6 - 1.1) LVIDd: 4.9 cm (3.9 - 5.3) LVPWd: 1.6 cm (0.6 - 1.1) IVSs: 1.9 cm LVIDs: 3.4 cm LVPWs: 1.7 cm LA Diam: 3.9 cm (2.7 - 3.8) LAESV Index (A-L): 25.03 ml/m Ao Diam: 3.6 cm (2.0 - 3.7) AV Cusp: 1.7 cm (1.5 - 2.6) MV EXCURSION: 13.883 mm (> 18.000) MV EF SLOPE: 43 mm/s (70 - 150) EPSS: 0.8 cm MV E Elias: 0.71 m/s MV DecT: 260 ms MV A Elias: 0.86 m/s MV E/A Ratio: 0.83 RAP: 5.00 mmHg RVSP: 30.01 mmHg TAPSE: 21.48 mm FINDINGS -------- Sinus rhythm. This was a technically good study. The left ventricular size is normal. There is moderate concentric left ventricular hypertrophy. O verall left ventricular systolic function is normal with, an EF between 60 - 65 %. The diastolic fi lling pattern is normal for the age of the patient 12.58. The right ventricle is normal in size. Normal LA size by volume 22+/-6 ml/m2. The right atrium is normal in size. Interatrial and interventricular septum intact. There is mild aortic valve sclerosis. The mitral valve leaflets are mildly thickened. Mild mitral regurgitation is present. Mild tricuspid regurgitation present. Right ventricular systolic pressure is normal at < 35 mmHg. Trace/mild (physiologic) pulmonic regurgitation. The aortic root size is normal. Normal inferior vena cava with normal inspiratory collapse consistent with estimated right atrial pre ssure of 5 mmHg. There is no pericardial effusion. CONCLUSIONS -------- 1. Sinus rhythm. 2. This was a technically good study. 3. The left ventricular size is normal. 4. Overall left ventricular systolic function is normal with, an EF between 60 - 65 %. 5. The diastolic filling pattern is normal for the age of the patient 12.58 6. The right ventricle is normal in size. 7. Normal LA size by volume 22+/-6 ml/m2. 8. The right atrium is normal in size. 9. Interatrial and interventricular septum intact. 10. There is mild aortic valve sclerosis. 11. The mitral valve leaflets are mildly thickened. 12. Mild mitral regurgitation is present. 13. Mild tricuspid regurgitation present. 14. Right ventricular systolic pressure is normal at < 35 mmHg. 15. Trace/mild (physiologic) pulmonic regurgitation. 16. The aortic root size is normal. 17. Normal inferior vena cava with normal inspiratory collapse consistent with estimated right atrial pressure of 5 mmHg. 18. There is no pericardial effusion. IT DATA ARCHITECT: Tatianna Mendieta RDCS
--- NOTE | 2019-07-03 13:26 | ECHOS ---
STRESS ECHOCARDIOGRAM DATE OF SERVICE: 07/03/2019 INDICATIONS: Chest pain. MEDICATIONS: BASELINE HEART RATE: 73 BASELINE BLOOD PRESSURE: 154/102 MAXIMUM HEART RATE: 154 MAXIMUM BLOOD PRESSURE: 168/81 85% MPHR: 138 100% MPHR: 162 METS: MAXIMUM STAGE REACHED: TOTAL EXERCISE TIME: CLINICAL INFORMATION: Baseline EKG revealed normal sinus rhythm without significant ST-T changes. Patient was administered dobutamine as per protocol and the heart rate went up to 154 beats per minute which is well above 85% of predicted maximal. He developed some palpitations but did not have any major symptoms. There was no arrhythmia. EKG did not reveal any ST-segment changes to indicate ischemia. By EKG criteria, this is unremarkable dobutamine stress test with rare PVCs. Baseline echo images revealed normal wall motion and wall thickening of all segments. With dobutamine administration there was progressive increase in contractility of all segments suggesting that there is no evidence of stress-induced ischemia on this study. FINAL IMPRESSION: 1. EKG criteria, this is unremarkable dobutamine stress test. 2. Normal dobutamine stress echocardiogram without evidence of ischemia. MMODL / IJN: [id number] /
--- NOTE | 2019-07-03 16:38 | P.HPIM ---
History of Present Illness H&P Date: 07/03/19 H&P and Discharge Summary This is a 58-year-old gentleman admitted to the ER with symptoms of the room spinning, accompanied by a nonpleasant aroma, described as "bad food",in a patient with history of CAD, status post PCI, hypertension, hyperlipidemia, family history of CAD, ex-smoker, daily alcohol consumption.EKG reporting normal sinus rhythm, incomplete right bundle branch block. Reportedly he had been physically active yesterday, deer hunting. Troponins negative 2. Chest x-ray reporting nonacute. Brain CT reportedly negative for acute intracranial process. Electrolytes within normal limits, creatinine 0.75. Afebrile, normal WBC Denies chest pain, palpitations or shortness of breath. Currently denies lightheadedness, dizziness or focal deficits. Denies decreased sensation, no numbness,no tingling. Evaluated by cardiology, recommendations noted and appreciated. Dobutamine stress echo ordered and pending. Review of Systems ROS Statement: Those systems with pertinent positive or pertinent negative responses have been documented in the HPI. ROS Other: All systems not noted in ROS Statement are negative. Past Medical History Past Medical History: GERD/Reflux, Hyperlipidemia, Hypertension, Osteoarthritis (OA) Additional Past Medical History / Comment(s): recent cellulitis right arm History of Any Multi-Drug Resistant Organisms: None Reported Past Surgical History: Heart Catheterization With Stent, Joint Replacement, Orthopedic Surgery Additional Past Surgical History / Comment(s): R & L Hip replaced; L knee scoped; arm surgery with skin grafts/ can't bend arm; colonoscopy,EGD Past Anesthesia/Blood Transfusion Reactions: No Reported Reaction Date of Last Stent Placement:: 12/2018 Past Psychological History: No Psychological Hx Reported Smoking Status: Former smoker Past Alcohol Use History: Daily Additional Past Alcohol Use History / Comment(s): drinks 2 glasses of vodka daily; smoked from 20-30's socially; less than 1/2 ppd Past Drug Use History: None Reported - Past Family History Mother Family Medical History: Coronary Artery Disease (CAD), Myocardial Infarction ([place]), Vascular Disorder Father Family Medical History: Cancer, Coronary Artery Disease (CAD) Additional Family Medical History / Comment(s): colon cancer Medications and Allergies Home Medications Medication Instructions Recorded Confirmed Type Aspirin 81 mg PO DAILY chew 05/15/19 11/18/19 Rx Atorvastatin [Lipitor] 80 mg PO DAILY #90 tab 12/27/18 07/02/19 Rx Clopidogrel [Plavix] 75 mg PO DAILY #90 tab 12/27/18 07/02/19 Rx Nitroglycerin Sl Tabs [Nitrostat] 0.4 mg SUBLINGUAL Q5M PRN #25 tab 12/27/18 07/02/19 Rx Ibuprofen [Motrin] 800 mg PO DAILY PRN 07/02/19 07/02/19 History Losartan Potassium 50 mg PO DAILY #0 07/03/19 07/02/19 Rx Metoprolol Tartrate [Lopressor] 12.5 mg PO BID #60 tab 07/03/19 Rx Allergies Allergy/AdvReac Type Severity Reaction Status Date / Time No Known Allergies Allergy Verified 07/02/19 21:55 Physical Exam Vitals: Vital Signs Temp Pulse Pulse Resp BP BP Pulse Ox 07/03/19 12:00 84 18 07/03/19 11:31 97.6 F 84 18 123/80 93 L 07/03/19 10:16 90/65 07/03/19 08:00 70 18 07/03/19 07:10 97.4 F L 70 18 129/79 99 07/03/19 04:00 97.5 F L 62 18 128/80 94 L 07/03/19 00:02 73 18 113/67 99 07/03/19 00:00 18 07/02/19 22:49 18 07/02/19 22:30 80 20 136/90 99 07/02/19 22:00 81 20 129/81 100 07/02/19 21:30 86 18 135/79 99 07/02/19 20:23 97.7 F 100 20 169/89 95 Intake and Output 07/02/19 07/03/19 07/03/19 22:59 06:59 14:59 Intake Total 537.1 360 Balance 537.1 360 Intake: Intake, IV Titration 57.1 Amount Heparin Sod,Pork in 0.45% 57.1 NaCl 25,000 unit In 0.45 % NaCl 1 250ml.bag @ 9 UNITS/KG/HR 9.185 mls/hr IV .Q24H [facility] Rx#: [id number] Oral 480 360 Other: Voiding Method Toilet Toilet # Voids 3 Weight 102.058 kg 102.058 kg Results CBC & Chem 7: 07/03/19 03:55 07/02/19 20:50 Labs: Abnormal Lab Results - Last 24 Hours (Table) 07/02/19 07/03/19 07/03/19 Range/Units 20:50 03:55 03:59 RBC 4.20 L (4.30-5.90) m/uL Hgb 12.5 L (13.0-17.5) gm/dL Hct 38.8 L (39.0-53.0) % Chloride 108 H (98-107) mmol/L BUN 23 H (9-20) mg/dL Glucose 106 H (74-99) mg/dL Triglycerides 278 H (<150) mg/dL Thrombosis Risk Factor Assmnt - Choose All That Apply Any of the Below Risk Factors Present?: Yes Each Factor Represents 1 point: Age 41-60 years Other Risk Factors: No Thrombosis Risk Factor Assessment Total Risk Factor Score: 1 Thrombosis Risk Factor Assessment Level: Low Risk Assessment and Plan Assessment: Dizziness accompanied by an aura CAD, status post PCI Hypertension Hyperlipidemia Alcohol abuse Plan: Continue on current medication regime ,monitoring and symptomatic treatment. Scheduled for stress echo dobutamine test. Patient may be discharged home pending final test results and cardiology clearance. Home meds have been reviewed and resumed accordingly. Alcohol cessation reinforced. Further recommendations to follow. Discharge Medication List Aspirin 81 mg PO DAILY chew 12/27/18 [Rx] Atorvastatin [Lipitor] 80 mg PO DAILY #90 tab 12/27/18 [Rx] Clopidogrel [Plavix] 75 mg PO DAILY #90 tab 12/27/18 [Rx] Nitroglycerin Sl Tabs [Nitrostat] 0.4 mg SUBLINGUAL Q5M PRN #25 tab 12/27/18 [Rx ] Ibuprofen [Motrin] 800 mg PO DAILY PRN 07/02/19 [History] Losartan Potassium 50 mg PO DAILY #0 07/03/19 [Rx] Metoprolol Tartrate [Lopressor] 12.5 mg PO BID #60 tab 07/03/19 [Rx] The impression and plan of care has been dictated as directed. : I performed a history and examination of this patient, discussed the same with the dictator. I agree with the dictator's note ,documented as a scribe. Any additional findings or plans will be noted.
== END 2019-07-03 15:25 | disposition home or self-care (01) ==
LOC: EC 20:17 → 1SOBS 22:41
PROVIDERS: ADMIT Family Medicine; ATTEND Family Medicine
DX: R42 Dizziness and giddiness (principal); R43.9 Unspecified disturbances of smell and taste; I25.10 Atherosclerotic heart disease of native coronary artery without angina pectoris; I10 Essential (primary) hypertension; I45.19 Other right bundle-branch block; K21.9 Gastro-esophageal reflux disease without esophagitis; E78.5 Hyperlipidemia, unspecified; E78.00 Pure hypercholesterolemia, unspecified; M19.90 Unspecified osteoarthritis, unspecified site; Z95.5 Presence of coronary angioplasty implant and graft; Z79.899 Other long term (current) drug therapy; Z79.1 Long term (current) use of non-steroidal anti-inflammatories (NSAID); Z79.82 Long term (current) use of aspirin; Z79.02 Long term (current) use of antithrombotics/antiplatelets; Z87.2 Personal history of diseases of the skin and subcutaneous tissue; Z98.890 Other specified postprocedural states; Z96.643 Presence of artificial hip joint, bilateral; Z87.891 Personal history of nicotine dependence; Z82.49 Family history of ischemic heart disease and other diseases of the circulatory system; Z80.0 Family history of malignant neoplasm of digestive organs
CPT/HCPCS: 96366; 96376; 96365; 99285; 36415; 93005; 93306; 93351; 80061; 80053; 83735; 84484 ×2; 85025 ×2; 85730; 71046; 70450; G0378 ×2; J1250; J1644 ×2; J0461